=== PATIENT | female | born 1980 | race Caucasian/White ===

== ENCOUNTER 2017-01-12 09:59 | Outpatient (CLI) | payer OTHER | END 2017-01-12 10:37 | disposition home or self-care (01) | LOC: LC 09:59 | PROVIDERS: ATTEND Student in an Organized Health Care Education/Training Program | PROC: 4A1HXCZ Monitoring of Products of Conception, Cardiac Rate, External Approach (ICD-10-PCS; principal; 2017-01-12) | DX: O24.419 Gestational diabetes mellitus in pregnancy, unspecified control (principal); O09.529 Supervision of elderly multigravida, unspecified trimester | CPT/HCPCS: 59025 ==

== ENCOUNTER 2017-01-24 06:13 | Inpatient (IN) | payer OTHER ==
--- NOTE | 2017-01-24 06:24 | Non Stress Test Report ---
Non Stress Test Datetime Report Generated by CPN: 01/24/2017 06:24 DEMOGRAPHIC EGA NST: 37.4 INDICATION Indication for Study: Diabetes Mellitus; Other VITAL SIGNS Temperature - NST: 98.1 Pulse - NST: 97 RESP - NST: 16 NBPSYS NST: 115 NBPDIA NST: 74 MONITORING Monitor Explained: Monitor Explained; Test Explained; Patient Verbalized Understanding Time on Monitor: 01/12/2017 10:10 Time off Monitor: 01/12/2017 10:33 NST Duration: 23 NST INTERVENTIONS NST Interventions: PO Hydration; Reposition Patient Physician Notified NST: K VALADEZ, CNM BABY A: [id number] BABY A Movement : Present Contraction Frequency : NONE FHR Baseline : 130 Accelerations : 15X15 Decelerations : None Variability : Moderate 6-25bpm NST Review: Meets Criteria for Reactive NST NST Review and Verified By : MANAV PRAKASH RN NST Results: Reactive NST REPORT Report Trigger: Send Report
[2017-01-24] MEDS ORDERED: OXYTOCIN/NORMAL SALINE 1,000 ML IV PRN ×2 (06:27→16:19)
[2017-01-24] MEDS ORDERED: RINGERS SOLUTION,LACTATED 1,000 ML IV PRN (06:28)
[2017-01-24] MEDS ORDERED: RINGERS SOLUTION,LACTATED 300 ML IV ONE (06:28)
[2017-01-24 07:04] LABS: APPEARANCE,URINE CLOUDY; BILIRUBIN,URINE NEGATIVE (NEGATIVE); GLUCOSE, URINE NEGATIVE (NEGATIVE); KETONES,URINE NEGATIVE (NEGATIVE); LEUKOCYTE ESTERASE,URINE TRACE (NEGATIVE); NITRITE,URINE NEGATIVE (NEGATIVE); PROTEIN,URINE 30 mg/dL (NEGATIVE); URINE SPECIFIC GRAVITY 1.025; UROBILINOGEN,URINE NEGATIVE mg/dL (<2.0)
[2017-01-24 07:19] LABS: ABSOLUTE BASOPHILS # (AUTO) 0.1 10^3/uL (0.0-0.2); ABSOLUTE EOSINOPHILS # (AUTO) 0.2 10^3/uL (0.0-0.6); ABSOLUTE LYMPHOCYTES (AUTO) 2.5 10^3/uL (0.5-4.7); ABSOLUTE MONOCYTES (AUTO) 0.8 10^3/uL (0.1-1.4); ABSOLUTE NEUT (AUTO) 8.8 10^3/uL (1.7-8.2); BASOPHILS % (AUTO) 0.4 % (0-2); EOSINOPHILS % (AUTO) 1.7 % (0-6); HEMATOCRIT 29.1 % (36.0-47.0); HEMOGLOBIN 9.5 g/dL (12.0-15.5); HGB HCT DIFFERENCE -0.6; LYMPHOCYTES % (AUTO) 19.9 % (13-45); MEAN CORPUSCULAR HEMOGLOBIN 27.7 pg (27.0-33.4); MEAN CORPUSCULAR HGB CONC 32.8 g/dL (32.0-36.0); MEAN CORPUSCULAR VOLUME 85 fl (80-97); MONOCYTES % (AUTO) 6.8 % (3-13); RED BLOOD COUNT 3.44 10^6/uL (3.72-5.28); RED CELL DISTRIBUTION WIDTH 15.6 % (11.5-14.0); SEGMENTED NEUTROPHILS % (AUTO) 71.2 % (42-78); WHITE BLOOD COUNT 12.4 10^3/uL (4.0-10.5)
[2017-01-24 07:25] LABS: URINE BARBITURATES SCREEN NEGATIVE; URINE METHADONE SCREEN NEGATIVE; URINE OPIATES LOW NEGATIVE; URINE PHENCYCLIDINE SCREEN NEGATIVE
[2017-01-24] MEDS ORDERED: OXYTOCIN/NORMAL SALINE 20 UNIT/1,000 ML RTUINJ ONE (07:46)
--- NOTE | 2017-01-24 08:00 | L&D Flow Sheet ---
LD Flowsheet Datetime Report Generated by CPN: 01/24/2017 08:00 Datetime: 01/24/2017 07:56 Communication Comments: blood glucose 76 (Ekaterina Oliver, RN) Datetime: 01/24/2017 07:52 NBP Sys/[place]/Mean (mmHg): 121 (QS system process) : 72 (QS system process) : 91 (QS system process) Pulse: 81 (QS system process) LaborFlag: Antepartum (QS system process) Datetime: 01/24/2017 07:30 Uterine Activity Monitor Mode: External; Palpation (Ekaterina Oliver, RN) Frequency (min): x1 (Ekaterina Oliver, RN) Quality: Mild (Ekaterina Oliver, RN) Duration (sec): 100 (Ekaterina Oliver, RN) Duration Criteria: Less than Two 120 Second Contractions (Ekaterina Oliver, RN) Pattern: Normal: <= 5 Contractions in 10 Minutes (Ekaterina Oliver, RN) Resting Tone (Palpate): Relaxed (Ekaterina Oliver, RN) Assessment A Monitor Mode: External US (Ekaterina Oliver, RN) FHR Baseline Rate : 140 (Ekaterina Boyd, RN) FHR Baseline Changes: No Baseline Change (Ekaterina Boyd, RN) Variability: Moderate 6-25 bpm (Ekaterina Boyd, RN) Accelerations: 15X15 (Ekaterina Boyd, RN) Decelerations: None (Ekaterina Boyd, RN) Datetime: 01/24/2017 07:20 Maternal Assessment Level of Consciousness: Fully Conscious (Ekaterina Boyd, RN) DTR's/Clonus: DTRs 2+; No Clonus (Ekaterina Boyd, RN) Headache: Denies (Ekaterina Boyd, RN) Breath Sounds, Left: Clear and Equal (Ekaterina Boyd, RN) Breath Sounds, Right: Clear and Equal (Ekaterina Boyd, RN) Nausea/Vomiting: Denies (Ekaterina Boyd, RN) RUQ Epigastric Pain: Denies (Ekaterina Boyd, RN) Datetime: 01/24/2017 07:19 Communication Comments: report received from B. Payne, RN (Ekaterina Oliver, RN) Datetime: 01/24/2017 07:13 Communication Communication: RN at Bedside (Mary Grace Payne, RN) Communication Comments: Report given to M Oliver. Care relinquished at this time. (Mary Grace Payne, RN) Datetime: 01/24/2017 07:09 Procedures: Bedside Ultrasound Done (Mary Grace Payne, RN) Patient Care Comments: Head down (Mary Grace Payne, RN) Datetime: 01/24/2017 07:07 Vaginal Exam Dilatation (cm): 3.5 (Mary Grace Payne, RN) Effacement (%): 50 (Mary Grace Payne, RN) Station: -3 (Mary Grace Payne, RN) Exam by: Dr Aguilar (Mary Grace Payne, RN) Vaginal Bleeding: None (Mary Grace Payne, RN) Cervix, Consistency: Moderate (Mary Grace Payne, RN) Cervix, Position: Midposition (Mary Grace Payne, RN) Datetime: 01/24/2017 07:00 Vital Signs Stage of : Antepartum (Mary Grace Payne, RN) Frequency (min): none (Mary Grace Payne, RN) Pattern: Normal: <= 5 Contractions in 10 Minutes (Mary Grace Payne, RN) Assessment A Monitor Mode: External US (Mary Grace Payne, RN) FHR Baseline Rate : 145 (Mary Grace Payne, RN) Variability: Moderate 6-25 bpm (Mary Grace Payne, RN) Accelerations: 15X15 (Mary Grace Payne, RN) Decelerations: None (Mary Grace Payne, RN) Communication Communication: RN at Bedside; RN Reviewed Strip (Mary Grace Payne, RN) Datetime: 01/24/2017 06:58 Patient Care IV/Blood Work: IV Started; IV Bolus Started (Mary Grace Payne, RN) Patient Care Comments: 18 gauge placed in R hand (Mary Grace Payne, RN) Datetime: 01/24/2017 06:48 Procedures: Consents Signed (Mary Grace Payne, RN) Datetime: 01/24/2017 06:45 Vital Signs Stage of : Antepartum (Mary Grace Payne, RN) Uterine Activity Monitor Mode: External; Palpation (Mary Grace Payne, RN) Frequency (min): x1 (Mary Grace Payne, RN) Quality: Mild/Moderate (Mary Grace Payne, RN) Duration (sec): 120 (Mary Grace Payne, RN) Pattern: Normal: <= 5 Contractions in 10 Minutes (Mary Grace Payne, RN) Resting Tone (Palpate): Relaxed (Mary Grace Payne, RN) Assessment A Monitor Mode: External US (Mary Grace Payne, RN) FHR Baseline Rate : 145 (Mary Grace Payne, RN) Variability: Moderate 6-25 bpm (Mary Grace Payne, RN) Accelerations: 15X15 (Mary Grace Payne, RN) Decelerations: None (Mary Grace Payne, RN) Communication Communication: RN at Bedside; RN Reviewed Strip (Mary Grace Payne, RN) Datetime: 01/24/2017 06:36 NBP Sys/[place]/Mean (mmHg): 116 (QS system process) : 75 (QS system process) : 89 (QS system process) Pulse: 102 (QS system process) Datetime: 01/24/2017 06:34 Pain Pain Scale: 0 (Mary Grace Payne, RN) Pain Presence: None/Denies (Mary Grace Payne, RN) Pain Type: N/A (Mary Grace Payne, RN) Vaginal Bleeding: None (Mary Grace Payne, RN) Maternal Assessment Level of Consciousness: Fully Conscious (Mary Grace Payne, RN) DTR's/Clonus: DTRs 1+; No Clonus (Mary Grace Payne, RN) Headache: Denies (Mary Grace Payne, RN) Breath Sounds, Left: Clear and Equal (Mary Grace Payne, RN) Breath Sounds, Right: Clear and Equal (Mary Grace Payne, RN) Nausea/Vomiting: Denies (Mary Grace Payne, RN) RUQ Epigastric Pain: Denies (Mary Graceyuri Payne, RN)
--- NOTE | 2017-01-24 14:15 | L&D Progress Notes ---
PROGRESS NOTES Datetime Report Generated by CPN: 01/24/2017 14:15 PROGRESS NOTE Impression: Reassuring Heart Rate Procedures: Artificial ROM; Sterile Vag Exam Plan: Continue Present Management Plan: Continue Present Management Informed Consent Obtained: Vaginal Delivery; Induction of Labor; Risks, Benefits and Alternatives Discussed Comment: SVE done with AROM with clear fuid. Will continue Pitocin IOL. Plans epidural for jerome management. VAGINAL EXAM Dilatation: 3 Dilatation: 4 Effacement: 70 Effacement: 50 Station: -1 Station: -3 MEMBRANES Pooling: Negative Ferning Results: Negative Membranes: Ruptured Membranes: Intact Amniotic Fluid Color: Clear FETUS A Monitoring: External US : 39.2 Presentation: Oblique SIGNATURE SIGNATURE: ,[id number] SIGNATURE: [id number] Assignment: Eleanor Boyd MD Signature: with User ID: [email or web address] : with User ID: [email or web address] : I personally evaluated and examined the patient in conjunction with the MLP and agree with the assessment, treatment plan and disposition.
[2017-01-24] MEDS ORDERED: EPHEDRINE SULFATE INJ 50 MG/1 ML AMPULE ONE (14:41)
[2017-01-24] MEDS ORDERED: BUPIVACAINE HCL 0.25 % INJ/PF (2.5 MG/1 ML) 30 ML VIAL ONE (14:41)
[2017-01-24] MEDS ORDERED: FENTANYL/BUPIVACAINE/NS/PF 200 MCG/100 ML RTUINJ EPI ONE (14:41)
[2017-01-24] MEDS ORDERED: MISOPROSTOL 0.2 MG TABLET ONE (15:38)
[2017-01-24] MEDS ORDERED: LIDOCAINE 1% INJ-PF (10 MG/ML) 30 ML SDV ONE (15:38)
[2017-01-24] MEDS ORDERED: ACETAMINOPHEN WITH CODEINE #3 TABLET PO PRN (16:19)
[2017-01-24] MEDS ORDERED: DIBUCAINE 1% OINTMENT 28 GM TP PRN (16:19)
[2017-01-24] MEDS ORDERED: MEASLES,MUMPS&RUBELLA VACC/PF 0.5 ML VIAL SUBCUT PRN (16:19)
[2017-01-24] MEDS ORDERED: DIPH/PERTUSS(ACELL)/TETANUS VAC/PF 0.5 ML SYR (>=10YO) IM PRN (16:19)
[2017-01-24] MEDS ORDERED: ZOLPIDEM TARTRATE 5 MG TABLET PO PRN (16:19)
[2017-01-24] MEDS ORDERED: BENZOCAINE/MENTHOL AEROSOL SPRAY 56 ML TOP PRN (16:19)
--- NOTE | 2017-01-24 17:28 | Delivery Summary ---
Del Sum A-C Datetime Report Generated by CPN: 01/24/2017 17:28 ADMISSION DATA Chief Complaint: Scheduled Induction of Labor Indication for Induction: Maternal Diabetes Admission Impression: Term, Intrauterine ; Intact Membranes; Induction of Labor Admit Provider Comments: 36yo at 39+2ega with A2GDM , AMA, left renal pelviectasis. high weight gain (68#). Currently on Glyburide 2.5mg QAM and 3.75mg QHS. She is here for IOL. EFW 8#, pelvis proven to 8#. Pelvis adequate for TRINITY and anticipate . GBS negative. Will initiate pitocin and then perform AROM when approp. DELIVERY PERSONNEL Delivery Doctor:: Eleanor Boyd MD Labor and Delivery Nurse:: Ekaterina Boyd RN Nursery Nurse:: Vesta Lao RN Student Observers:: Rachel Jimenez, Cindy Keating, Paz Phanton Post Doc Fellowship/INVESTOR RELATIONS SPECIALIST: Oralia Cartwright, INVESTOR RELATIONS SPECIALIST II MATERNAL INFORMATION Delivery Anesthesia: Epidural Medications After Delivery: Pitocin Bolus-Please Comment Meds After Delivery Comment: 20 units Pitocin in 1L NS Estimated Blood Loss (ml): 200 Maternal Complications: None LABOR SUMMARY EDC: 01/29/2017 00:00 No. Babies in Womb: 1 Attempted: No Labor Anesthesia: Epidural LABOR INFORMATION Reason for Induction: Maternal Diabetes Onset of Labor: 01/24/2017 14:50 Complete Dilatation: 01/24/2017 15:53 Oxytocin: Induction Group B Beta Strep: negative Antibiotics # of Doses: 0 Name of Antibiotic Given: n/a Steroids Given: None Reason Steroids Not Administered: Not Applicable MEMBRANES Membranes Rupture Method: Artificial Rupture of Membranes: 01/24/2017 14:07 Length of Rupture (hr): 1.77 Amniotic Fluid Color: Clear Amniotic Fluid Amount: Small Amniotic Fluid Odor: Normal STAGES OF LABOR Stage 1 hr: 1 Stage 1 min: 3 Stage 2 hr: 0 Stage 2 min: 0 Stage 3 hr: 0 Stage 3 min: 5 Total Time in Labor hr: 1 Total Time in Labor min: 8 VAGINAL DELIVERY Episiotomy: None Laceration Extension: First Degree Laceration Type: Vaginal Laceration Repair: Yes Laceration Repair Note: 2-0 Chromic repair Sponge Count Correct: Yes; Vaginal Sweep Performed Sharps Count Correct: Yes CSECTION DELIVERY Primary Indication: N/A Secondary Indication: N/A CSection Incidence: N/A Labor: N/A Elective: N/A CSection Incision: N/A BABY A INFORMATION Infant Delivery Date/Time: 01/24/2017 15:53 Method of Delivery: Vaginal Born in Route : No : N/A Forceps: N/A Vacuum Extraction: N/A Shoulder Dystocia : No PRESENTATION/POSITION BABY A Presentation: Cephalic Cephalic Presentation: Vertex Vertex Position: Right Occipital Anterior Breech Presentation: N/A PLACENTA INFORMATION BABY A Placenta Delivery Time : 01/24/2017 15:58 Placenta Method of Delivery: Spontaneous Placenta Status: Delivered SCORES BABY A Heart Rate 1 min: >100 bpm Resp Effort 1 min: Good Cry Reflex Irritability 1 min: Cough or Sneeze or Pulls Away Muscle Tone 1 min: Active Motion Color 1 min: Body Friedens, Extremities Blue Resuscitation Effort 1 min: Tactile Stimulation SCORE 1 MIN: 9 Heart Rate 5 min: >100 bpm Resp Effort 5 min: Good Cry Reflex Irritability 5 min: Cough or Sneeze or Pulls Away Muscle Tone 5 min: Active Motion Color 5 min: Body Friedens, Extremities Blue Resuscitation Effort 5 min: Tactile Stimulation SCORE 5 MIN: 9 INFORMATION BABY A Gestational Age at Delivery: 39.2 Gestational Status: Full Term- 39- 40.6 Weeks Outcome : Liveborn Infant Condition : Stable Sex: Male IDENTIFICATION BABY A Verification Date/Time: 01/24/2017 16:22 ID Band Number: [id number] Mother's Name Verified: Yes Infant RN Verifying : Stefanie Giovani RNC Additional Verifying Personnel: Oliver Bonner RNC WEIGHT/LENGTH BABY A Infant Birthweight (gm): 3920 Weight (lb): 8 Infant Weight (oz): 10 Length (in): 20.00 Length (cm): 50.80 CORD INFORMATION BABY A No. Cord Vessels: 3 Nuchal Cord : N/A Cord Blood Taken: Yes-For Eval (Mom's Blood Type - or O+) Infant Suction: Mouth; Nose ASSESSMENT BABY A Infant Complications: Multiple Late Decels Physical Findings at Delivery: Within Normal Limits Infant Respirations: Appears Normal Skin to Skin: Yes Skin to Skin Time (min): 30 Neckties Painter/ALS Called : No Infant Care By: Jesus Lao RN Transferred To: Remains with Mother BABY B INFORMATION : N/A SIGNATURES Signature: with User ID: [email or web address] : I personally evaluated and examined the patient in conjunction with the MLP and agree with the assessment, treatment plan and disposition.
--- NOTE | 2017-01-24 18:05 | Admission Physical ---
Datetime Report Generated by CPN: 01/24/2017 18:05 CURRENT ADMISSION Chief Complaint: Scheduled Induction of Labor Indication for Induction: Maternal Diabetes Admit Plan: Admit to Unit; Initiate Labor Induction Protocol ALLERGIES Medication Allergies: No Medication Allergies: No Known Allergies (01/24/2017) Medication Allergies: No Known Allergies (01/12/2017) Latex: No Latex Allergies Food Allergies: none Environmental Allergies: none OBSTETRICAL HISTORY EDC: 01/29/2017 00:00 : 3 Para: 1 Term: 1 : 0 SAB: 0 IAB: 1 Ectopic: 0 Livin Cesareans: 0 VBACs: 0 Multiple Births: 0 Gestational Diabetes: Yes Rh Sensitization: No Incompetent Cervix: No JESSICA: No Infertility: No ART Treatment: No Uterine Anomaly: No IUGR: No Hx Previous C/S: No Macrosomia: No Hx Loss/Stillborn: No PIH: No Hx : No Placenta Previa/Abruption: No Depression/PP Depression: No PTL/PROM: No Post Hemorrhage: No Current Procedures: Ultrasound; NST Obstetrical History Comments: G-1 EAB 11 week G-2 40 weeks no complications G-3 GDM, AMA on Glyburide SEE RECORDS Alcohol: No Marijuana : No Cocaine: No Other Illicit Drugs: No Cigarettes: Former Smoker. [id number] MEDICAL HISTORY Diabetes: Yes Diabetes Type: Gestational Diabetes Blood Transfusion: No Pulmonary Disease (Asthma, TB): No Breast Disease: No Hypertension: No Biology Adjunct Instructor Surgery: No Heart Disease: No Hosp/Surgery: Yes Autoimmune Disorder: No Anesthetic Complications: No Kidney Disease: No Abnormal Pap Smear: No Neuro/Epilepsy: No Psychiatric Disorders: No Other Medical Diseases: No Hepatitis/Liver Disease: No Significant Family History: No Varicosities/Phlebitis: No Trauma/Violence : No Thyroid Dysfunction: No Medical History Comments: childbirth INFECTIOUS HISTORY Gonorrhea: No Genital Herpes: No Chlamydia: No Tuberculosis: No Syphilis: No Hepatitis: No HIV/AIDS Exposure: No Rash or Viral Illness: No HPV: No PHYSICAL EXAM General: Normal HEENT: Normal Neurologic: Normal Thyroid: Normal Heart: Normal Lungs: Normal Breast: Deferred Back: Normal Abdomen: Normal Genitourinary Exam: Normal Extremities: Normal DTRs: Normal Pelvic Type: Adequate Vital Signs: Reviewed; Within Normal Limits VAGINAL EXAM Dilatation: 3 Dilatation: 4 Effacement: 70 Effacement: 50 Station: -1 Station: -3 MEMBRANES Pooling: Negative Ferning Results: Negative Membranes: Ruptured Membranes: Intact Amniotic Fluid Color: Clear FETUS A EGA: 39.2 Monitoring: External US FHR- Baseline: 150 Variability: Moderate 6-25bpm Accelerations: 15X15 Decelerations: None FHR Category: Category I Presentation: Oblique Admit Comment: 36yo at 39+2ega with A2GDM , AMA, left renal pelviectasis. high weight gain (68#). Currently on Glyburide 2.5mg QAM and 3.75mg QHS. She is here for IOL. EFW 8#, pelvis proven to 8#. Pelvis adequate for TRINITY and anticipate . GBS negative. Will initiate pitocin and then perform AROM when approp. PLANS FOR LABOR AND DELIVERY Labor and Delivery: None Pain Management: Epidural Feeding Preference: Breast Benefit of Breast Feed Discussed: Yes Circumcision: Yes INFORMED CONSENT Informed Consent Obtained: Vaginal Delivery; Induction of Labor; Risks, Benefits and Alternatives Discussed Signature: with User ID: [email or web address] : I personally evaluated and examined the patient in conjunction with the MLP and agree with the assessment, treatment plan and disposition.
[2017-01-24] MEDS: FERROUS SULFATE 325 MG TABLET PO SCH (19:00)
[2017-01-24] MEDS: DOCUSATE SODIUM 100 MG CAPSULE PO SCH (19:00)
--- NOTE | 2017-01-24 19:00 | L&D Flow Sheet ---
LD Flowsheet Datetime Report Generated by CPN: 01/24/2017 19:00 Datetime: 01/24/2017 17:40 NBP Sys/[place]up[place]/Mean (mmHg): 119 (QS system process) : 73 (QS system process) : 91 (QS system process) Pulse: 91 (QS system process) Datetime: 01/24/2017 17:25 NBP Sys/[place]/Mean (mmHg): 115 (QS system process) : 66 (QS system process) : 85 (QS system process) Pulse: 86 (QS system process) Datetime: 01/24/2017 17:10 NBP Sys/[place]/Mean (mmHg): 128 (QS system process) : 74 (QS system process) : 94 (QS system process) Pulse: 99 (QS system process) Datetime: 01/24/2017 17:06 NBP Sys/[place]/Mean (mmHg): 126 (QS system process) : 73 (QS system process) : 93 (QS system process) Pulse: 90 (QS system process) Datetime: 01/24/2017 16:45 Stage of : Recovery (Ekaterina Boyd RN) Respirations: 16 (Ekaterina Boyd RN) Temperature (F): 98.1 (Ekaterina Boyd RN) Temperature (C): 36.7 (QS system process) Temperature Route: Oral (Ekaterina Boyd RN) Pain Scale: 0 (Ekaterina Boyd RN) Pain Presence: None/Denies (Ekaterina Boyd RN) Pain Type: N/A (Ekaterina Boyd RN) Pain Goal: 1 (Ekaterina Boyd RN) Pain Relief Measures: Comfort Measures (Ekaterina Boyd RN) Datetime: 01/24/2017 16:40 NBP Sys/[place]/Mean (mmHg): 118 (QS system process) : 79 (QS system process) : 91 (QS system process) Datetime: 01/24/2017 16:35 NBP Sys/[place]/Mean (mmHg): 120 (QS system process) : 76 (QS system process) : 93 (QS system process) Pulse: 92 (QS system process) Datetime: 01/24/2017 15:55 Stage of : Recovery (Ekaterina Oliver, RN) Datetime: 01/24/2017 15:53 Stage of : Recovery (Ekaterina Oliver, RN) Datetime: 01/24/2017 15:51 NBP Sys/[place]/Mean (mmHg): 193 (QS system process) : 95 (QS system process) : 136 (QS system process) Pulse: 148 (QS system process) LaborFlag: Antepartum (QS system process) Datetime: 01/24/2017 15:50 NBP Sys/[place]/Mean (mmHg): 187 (QS system process) : 68 (QS system process) : 98 (QS system process) Pulse: 153 (QS system process) LaborFlag: Antepartum (QS system process) Datetime: 01/24/2017 15:49 Monitor Interventions for FHR: Ultrasound Adjusted (Ekaterina Oliver, RN) Datetime: 01/24/2017 15:48 NBP Sys/[place]/Mean (mmHg): 179 (QS system process) : 72 (QS system process) : 103 (QS system process) Pulse: 139 (QS system process) LaborFlag: Antepartum (QS system process) Datetime: 01/24/2017 15:47 NBP Sys/[place]/Mean (mmHg): 156 (QS system process) : 68 (QS system process) : 98 (QS system process) Pulse: 112 (QS system process) LaborFlag: Antepartum (QS system process) Datetime: 01/24/2017 15:46 NBP Sys/[place]/Mean (mmHg): 146 (QS system process) : 94 (QS system process) : 112 (QS system process) Pulse: 130 (QS system process) Pushing: Coached on Pushing; Urge to Push; Involuntary Pushing (Ekaterina Boyd RN) Pushing Position: Pushing with Contractions; Pushing Lithotomy (Ekaterina Boyd RN) Pushing Progress: Descent with Pushing; Perineal Bulging; Presenting Part Visible; with Pushing; Pushing Effectively with Contractions (Ekaterina Boyd RN) LaborFlag: Antepartum (QS system process) Datetime: 01/24/2017 15:45 NBP Sys/[place]/Mean (mmHg): 124 (QS system process) : 77 (QS system process) : 96 (QS system process) Pulse: 134 (QS system process) Monitor Mode: External; Palpation (Ekaterina Boyd RN) Frequency (min): 2-4 (Ekaterina Boyd RN) Quality: Mild/Moderate (Ekaterina Boyd RN) Duration (sec): 60-90 (Ekaterina Boyd RN) Duration Criteria: Less than Two 120 Second Contractions (Ekaterina Boyd RN) Pattern: Normal: <= 5 Contractions in 10 Minutes (Ekaterina Boyd RN) Resting Tone (Palpate): Relaxed (Ekaterina Boyd RN) Monitor Mode: External US (Ekaterina Boyd RN) Monitor Interventions for FHR: Ultrasound Adjusted (Ekaternia Boyd RN) FHR Baseline Rate : 130 (Ekaterina Boyd RN) FHR Baseline Changes: No Baseline Change (Ekaterina Boyd RN) Variability: Moderate 6-25 bpm (Ekaterina Boyd RN) Accelerations: None (Ekaterina Boyd RN) Decelerations: None (Ekaterina Boyd RN) LaborFlag: Antepartum (QS system process) Datetime: 01/24/2017 15:43 NBP Sys/[place]/Mean (mmHg): 144 (QS system process) : 82 (QS system process) : 104 (QS system process) Pulse: 111 (QS system process) LaborFlag: Antepartum (QS system process) Datetime: 01/24/2017 15:42 NBP Sys/[place]/Mean (mmHg): 137 (QS system process) : 87 (QS system process) : 105 (QS system process) Pulse: 139 (QS system process) LaborFlag: Antepartum (QS system process) Datetime: 01/24/2017 15:41 NBP Sys/[place]/Mean (mmHg): 154 (QS system process) : 79 (QS system process) : 97 (QS system process) Pulse: 112 (QS system process) LaborFlag: Antepartum (QS system process) Datetime: 01/24/2017 15:40 Patient Position/Activity: Right Tilt; Low Fowlers (Ekaterina Boyd RN) Datetime: 01/24/2017 15:38 NBP Sys/[place]/Mean (mmHg): 131 (QS system process) : 60 (QS system process) : 86 (QS system process) Pulse: 90 (QS system process) LaborFlag: Antepartum (QS system process) Datetime: 01/24/2017 15:37 NBP Sys/[place]/Mean (mmHg): 153 (QS system process) : 70 (QS system process) : 100 (QS system process) Pulse: 104 (QS system process) Pushing: Coached on Pushing; Urge to Push; Involuntary Pushing (Ekaterina Boyd RN) Pushing Position: Pushing with Contractions; Pushing Lithotomy (Ekaterina Boyd RN) Pushing Progress: Descent with Pushing; Presenting Part Visible (Ekaterina Boyd RN) LaborFlag: Antepartum (QS system process) Datetime: 01/24/2017 15:36 NBP Sys/[place]/Mean (mmHg): 135 (QS system process) : 63 (QS system process) : 90 (QS system process) Pulse: 100 (QS system process) LaborFlag: Antepartum (QS system process) Datetime: 01/24/2017 15:35 NBP Sys/[place]/Mean (mmHg): 122 (QS system process) : 65 (QS system process) : 89 (QS system process) Pulse: 109 (QS system process) Communication Comments: straight cath per sterile technique (Ekaterina Boyd RN) LaborFlag: Antepartum (QS system process) Datetime: 01/24/2017 15:34 NBP Sys/[place]/Mean (mmHg): 127 (QS system process) : 69 (QS system process) : 86 (QS system process) Pulse: 93 (QS system process) LaborFlag: Antepartum (QS system process) Datetime: 01/24/2017 15:33 NBP Sys/[place]/Mean (mmHg): 129 (QS system process) : 92 (QS system process) : 105 (QS system process) Pulse: 86 (QS system process) Dilatation (cm): 10.0 (Ekaterina Boyd RN) Effacement (%): 100 (Ekaterian Boyd RN) Station: 2 (Ekaterina Boyd RN) Exam by: Helga Boyd RN (Ekaterina Boyd RN) LaborFlag: Antepartum (QS system process) Datetime: 01/24/2017 15:32 Communication: Provider at Bedside (Ekaterina Boyd RN) Datetime: 01/24/2017 15:31 NBP Sys/[place]/Mean (mmHg): 123 (QS system process) : 70 (QS system process) : 89 (QS system process) Pulse: 83 (QS system process) LaborFlag: Antepartum (QS system process) Datetime: 01/24/2017 15:30 NBP Sys/[place]/Mean (mmHg): 121 (QS system process) : 79 (QS system process) : 96 (QS system process) Pulse: 97 (QS system process) Monitor Mode: External; Palpation (Ekaterina Boyd RN) Frequency (min): 1-2.5 (Ekaterina Boyd RN) Quality: Moderate to Strong (Ekaterina Boyd RN) Duration (sec): 60-70 (Ekaterina Boyd RN) Duration Criteria: Less than Two 120 Second Contractions (Ekaterina Boyd RN) Pattern: Normal: <= 5 Contractions in 10 Minutes (Ekaterina Boyd RN) Resting Tone (Palpate): Relaxed (Ekaterina Boyd RN) Monitor Mode: External US (Ekaterina Boyd RN) FHR Baseline Rate : 130 (Ekaterina Boyd RN) FHR Baseline Changes: No Baseline Change (Ekaterina Boyd RN) Variability: Moderate 6-25 bpm (Ekaterina Boyd RN) Accelerations: 15X15 (Ekaterina Boyd RN) Decelerations: Late (Ekaterina Boyd RN) LaborFlag: Antepartum (QS system process) Datetime: 01/24/2017 15:29 NBP Sys/[place]/Mean (mmHg): 108 (QS system process) : 58 (QS system process) : 79 (QS system process) Pulse: 81 (QS system process) Medication Comments: Ephedrine 10 mg (Ekaterina Boyd RN) LaborFlag: Antepartum (QS system process) Datetime: 01/24/2017 15:28 NBP Sys/[place]/Mean (mmHg): 115 (QS system process) : 61 (QS system process) : 84 (QS system process) Pulse: 82 (QS system process) LaborFlag: Antepartum (QS system process) Datetime: 01/24/2017 15:27 NBP Sys/[place]/Mean (mmHg): 115 (QS system process) : 67 (QS system process) : 86 (QS system process) Pulse: 76 (QS system process) LaborFlag: Antepartum (QS system process) Datetime: 01/24/2017 15:24 Patient Position/Activity: Right Extreme; Low Fowlers (Ekaterina Oliver, RN) Communication Comments: o2 applied (Ekaterina Oliver, RN) Datetime: 01/24/2017 15:20 Patient Position/Activity: Right Tilt; Low Fowlers (Ekaterina Boyd, RN) Datetime: 01/24/2017 15:19 NBP Sys/[place]/Mean (mmHg): 137 (QS system process) : 63 (QS system process) : 91 (QS system process) Pulse: 75 (QS system process) LaborFlag: Antepartum (QS system process) Datetime: 01/24/2017 15:18 NBP Sys/[place]/Mean (mmHg): 143 (QS system process) : 67 (QS system process) : 96 (QS system process) Pulse: 93 (QS system process) LaborFlag: Antepartum (QS system process) Datetime: 01/24/2017 15:17 NBP Sys/[place]/Mean (mmHg): 147 (QS system process) : 76 (QS system process) : 105 (QS system process) Pulse: 96 (QS system process) Pulse: 97 (QS system process) SpO2 (%): 99 (QS system process) LaborFlag: Antepartum (QS system process) Datetime: 01/24/2017 15:16 Anesthesia Plans: Epidural (Ekaterina Boyd RN) Epidural Positioning: Sitting (Ekaterina Boyd RN) Epidural Procedure: Cath Placed; Test Dose (Ekaterina Boyd RN) Datetime: 01/24/2017 15:15 Monitor Mode: External; Palpation (Ekaterina Boyd RN) Frequency (min): 2.5-3 (Ekaterina Boyd RN) Quality: Moderate to Strong (Ekaterina Boyd RN) Duration (sec): 70-80 (Ekaterina Boyd RN) Duration Criteria: Less than Two 120 Second Contractions (Ekaterina Boyd RN) Pattern: Normal: <= 5 Contractions in 10 Minutes (Ekaterina Boyd RN) Resting Tone (Palpate): Relaxed (Ekaterina Boyd RN) Monitor Mode: External US (Ekaterina Boyd RN) FHR Baseline Rate : 130 (Ekaterina Boyd RN) FHR Baseline Changes: No Baseline Change (Ekaterina Boyd RN) Variability: Moderate 6-25 bpm (Ekaterina Boyd RN) Accelerations: 10X10 (Ekaterina Boyd RN) Decelerations: None (Ekaterina Boyd RN) Anesthesia Plans: Epidural (Ekaterina Boyd RN) Epidural Positioning: Sitting (Ekaterina Boyd RN) Epidural Procedure: Cath Placed (Ekaterina Boyd RN) Datetime: 01/24/2017 15:12 Pulse: 84 (QS system process) SpO2 (%): 97 (QS system process) LaborFlag: Antepartum (QS system process) Datetime: 01/24/2017 15:11 NBP Sys/[place]/Mean (mmHg): 141 (QS system process) : 83 (QS system process) : 106 (QS system process) Pulse: 87 (QS system process) LaborFlag: Antepartum (QS system process) Datetime: 01/24/2017 15:09 Procedure Verify: Correct Patient Identity; Correct Side and Site are Marked; Accurate Procedure Consent Form; Agreement on Procedure to be Done; Correct Patient Position; Relevant Images and Results are Properly Labeled and Displayed; Addressed Need to Administer Antibiotics or Fluids for Irrigation; Safety Precautions Based on Patient History or Medication Use (Ekaterina Boyd RN) Anesthesia Plans: Epidural (Ekaterina Boyd RN) Epidural Positioning: Sitting (Ekaterina Boyd RN) Datetime: 01/24/2017 15:07 Pulse: 84 (QS system process) SpO2 (%): 97 (QS system process) LaborFlag: Antepartum (QS system process) Datetime: 01/24/2017 15:00 Monitor Mode: External; Palpation (Ekaterina Boyd, RN) Frequency (min): 2-2.5 (Ekaterina Boyd, RN) Quality: Mild/Moderate (Ekaterina Oliver, RN) Duration (sec): 70-90 (Ekaterina Boyd, RN) Duration Criteria: Less than Two 120 Second Contractions (Ekaterina Boyd, RN) Pattern: Normal: <= 5 Contractions in 10 Minutes (Ekaterina Boyd, RN) Resting Tone (Palpate): Relaxed (Ekaterina Body, RN) Monitor Mode: External US (Ekaterina Boyd, RN) FHR Baseline Rate : 135 (Ekaterina Boyd, RN) FHR Baseline Changes: No Baseline Change (Ekaterina Boyd, RN) Variability: Moderate 6-25 bpm (Ekaterina Oliver, RN) Accelerations: None (Ekaterinakelvin Boyd, RN) Decelerations: Early (Ekaterina Boyd, RN) Datetime: 01/24/2017 14:58 Pulse: 90 (QS system process) SpO2 (%): 97 (QS system process) LaborFlag: Antepartum (QS system process) Datetime: 01/24/2017 14:57 NBP Sys/[place]/Mean (mmHg): 142 (QS system process) : 86 (QS system process) : 108 (QS system process) Pulse: 88 (QS system process) LaborFlag: Antepartum (QS system process) Datetime: 01/24/2017 14:52 Pulse: 77 (QS system process) SpO2 (%): 96 (QS system process) LaborFlag: Antepartum (QS system process) Datetime: 01/24/2017 14:50 Procedure Verify: Correct Patient Identity; Correct Side and Site are Marked; Accurate Procedure Consent Form; Agreement on Procedure to be Done; Correct Patient Position; Relevant Images and Results are Properly Labeled and Displayed; Addressed Need to Administer Antibiotics or Fluids for Irrigation; Safety Precautions Based on Patient History or Medication Use (Ekaterina Boyd RN) Anesthesia Plans: Epidural (Ekaterina Boyd RN) Datetime: 01/24/2017 14:49 Communication Comments: Dr. Hinson notified of patient's request for epidural (Ekaterina Boyd, ESTELA) Datetime: 01/24/2017 14:45 Monitor Mode: External; Palpation (Ekaterina Boyd, RN) Frequency (min): 2-3.5 (Ekaterina Boyd, RN) Quality: Mild/Moderate (Ekaterina Boyd, RN) Duration (sec): 60-80 (Ekaterina Boyd, RN) Duration Criteria: Less than Two 120 Second Contractions (Ekaterina Boyd, RN) Pattern: Normal: <= 5 Contractions in 10 Minutes (Ekaterina Boyd, RN) Resting Tone (Palpate): Relaxed (Ekaterina Boyd, RN) Monitor Mode: External US (Ekaterina Boyd, RN) FHR Baseline Rate : 130 (Ekaterina Boyd, RN) FHR Baseline Changes: No Baseline Change (Ekaterina Boyd, RN) Variability: Moderate 6-25 bpm (Ekaterina Boyd, RN) Accelerations: 15X15 (Ekaterina Boyd, RN) Decelerations: None (Ekaterina Boyd, RN) Datetime: 01/24/2017 14:30 Monitor Mode: External; Palpation (Ekaterina Boyd RN) Frequency (min): 1.5-3 (Ekaterina Boyd RN) Quality: Mild/Moderate (Ekaterina Boyd, RN) Duration (sec): 50-100 (Ekaterina Boyd, ESTELA) Duration Criteria: Less than Two 120 Second Contractions (Ekaterina Boyd, ESTELA) Pattern: Normal: <= 5 Contractions in 10 Minutes (Ekaterina Boyd RN) Resting Tone (Palpate): Relaxed (Ekaterina Boyd, RN) Monitor Mode: External US (Ekaterina Boyd, ESTELA) FHR Baseline Rate : 140 (Ekaterina Boyd RN) FHR Baseline Changes: No Baseline Change (Ekaterina Boyd, RN) Variability: Moderate 6-25 bpm (Ekaterina Boyd, RN) Accelerations: 10X10 (Ekaterina Boyd, RN) Decelerations: None (Ekaterina Boyd, RN) Datetime: 01/24/2017 14:28 NBP Sys/[place]/Mean (mmHg): 118 (QS system process) : 59 (QS system process) : 83 (QS system process) Pulse: 82 (QS system process) LaborFlag: Antepartum (QS system process) Datetime: 01/24/2017 14:15 Monitor Mode: External; Palpation (Ekaterina Boyd, ESTELA) Frequency (min): 2.5-4 (Ekaterina Boyd, ESTELA) Quality: Mild/Moderate (Ekaterina Boyd, RN) Duration (sec): 80-90 (Ekaterina Boyd, RN) Duration Criteria: Less than Two 120 Second Contractions (Ekaterina Boyd, RN) Pattern: Normal: <= 5 Contractions in 10 Minutes (Ekaterina Boyd, RN) Resting Tone (Palpate): Relaxed (Ekaterina Boyd, RN) Monitor Mode: External US (Ekaterina Boyd, RN) FHR Baseline Rate : 135 (Ekaterina Boyd, RN) FHR Baseline Changes: No Baseline Change (Ektaerina Boyd, RN) Variability: Moderate 6-25 bpm (Ekaterina Boyd, RN) Accelerations: None (Ekaterina Boyd, RN) Decelerations: None (Ekaterina Boyd, RN) Datetime: 01/24/2017 14:09 Procedure Verify: Correct Patient Identity; Correct Side and Site are Marked; Accurate Procedure Consent Form; Agreement on Procedure to be Done; Relevant Images and Results are Properly Labeled and Displayed; Addressed Need to Administer Antibiotics or Fluids for Irrigation; Safety Precautions Based on Patient History or Medication Use (Ekaterina Boyd RN) Anesthesia Plans: Epidural (Ekaterina Boyd RN) Datetime: 01/24/2017 14:07 Dilatation (cm): 3.0 (Ekaterina Boyd RN) Effacement (%): 70 (Ekaterina Boyd RN) Station: -1 (Ekaterina Boyd RN) Exam by: Brenda Rhoades CNM (Ekaterina Boyd RN) Membrane Status: Ruptured (Ekaterina Boyd RN) Membranes Rupture Method: Artificial (Ekaterina Boyd RN) Amniotic Fluid Color: Clear (Ekaterina Boyd RN) Amniotic Fluid Amount: Small (Ekaterina Boyd RN) Amniotic Fluid Odor: Normal (Ekaterina Boyd RN) Datetime: 01/24/2017 14:06 Pain Scale: 3 (Ekaterina Boyd RN) Pain Presence: Intermittent (Ekaterina Boyd RN) Pain Type: Contraction (Ekaterina Boyd RN) Pain Location: Abdomen (Ekaterina Boyd RN) Pain Goal: 1 (Ekaterina Boyd RN) LaborFlag: Antepartum (QS system process) Datetime: 01/24/2017 14:00 Monitor Mode: External; Palpation (Ekaterina Boyd RN) Frequency (min): 2-2.5 (Ekaterina Boyd RN) Quality: Mild/Moderate (Ekaterina Boyd, ESTELA) Duration (sec): 70-90 (Ekaterina Boyd, ESTELA) Duration Criteria: Less than Two 120 Second Contractions (Ekaterina Boyd, ESTELA) Pattern: Normal: <= 5 Contractions in 10 Minutes (Ekaterina Boyd RN) Resting Tone (Palpate): Relaxed (Ekaterina Boyd, ESTELA) Monitor Mode: External US (Ekaterina Boyd, ESTELA) FHR Baseline Rate : 140 (Ekaterina Boyd RN) FHR Baseline Changes: No Baseline Change (Ekaterina Boyd, RN) Variability: Moderate 6-25 bpm (Ekaterina Boyd, RN) Accelerations: 15X15 (Ekaterina Boyd, RN) Decelerations: None (Ekaterina Boyd, RN) Datetime: 01/24/2017 13:57 NBP Sys/[place]/Mean (mmHg): 133 (QS system process) : 63 (QS system process) : 88 (QS system process) Pulse: 85 (QS system process) LaborFlag: Antepartum (QS system process) Datetime: 01/24/2017 13:45 Monitor Mode: External; Palpation (Ekaterina Boyd RN) Frequency (min): 1.5-3 (Ekaterina Boyd RN) Quality: Mild/Moderate (Ekaterina Boyd, RN) Duration (sec): 60-90 (Ekaterina Boyd, ESTELA) Duration Criteria: Less than Two 120 Second Contractions (Ekaterina Boyd, ESTELA) Pattern: Normal: <= 5 Contractions in 10 Minutes (Ekaterina Boyd RN) Resting Tone (Palpate): Relaxed (Ekaterina Boyd, RN) Monitor Mode: External US (Ekaterina Boyd, RN) FHR Baseline Rate : 140 (Ekaterina Boyd, RN) FHR Baseline Changes: No Baseline Change (Ekaterina Boyd, ESTELA) Variability: Moderate 6-25 bpm (Ekaterina Boyd, RN) Accelerations: 15X15 (Ekaterina Boyd, RN) Decelerations: None (Ekaterina Boyd, RN) Pitocin (milliunit): Pitocin Remains (milliunits) @ (Annotations: 8) (Ekaterina Boyd RN) Datetime: 01/24/2017 13:44 I/O Interventions: Popsicle (Ekaterina Oliver, RN) Datetime: 01/24/2017 13:43 NBP Sys/[place]/Mean (mmHg): 105 (QS system process) : 51 (QS system process) : 72 (QS system process) Pulse: 80 (QS system process) LaborFlag: Antepartum (QS system process) Datetime: 01/24/2017 13:40 Communication Comments: blood sugar 71, order received for patient to have popsicle from PWong Rhoades, CNM (Ekaterina Oliver, RN) Datetime: 01/24/2017 13:39 Bedside Blood Glucose: 71 (QS system process) LaborFlag: Antepartum (QS system process) Datetime: 01/24/2017 13:30 Monitor Mode: External; Palpation (Ekaterina Boyd, RN) Frequency (min): 2-2.5 (Ekaterina Boyd, RN) Quality: Mild (Ekaterina Boyd, RN) Duration (sec): 70-90 (Ekaterina Boyd, RN) Duration Criteria: Less than Two 120 Second Contractions (Ekaterina Boyd, RN) Pattern: Normal: <= 5 Contractions in 10 Minutes (Ekaterina Boyd, RN) Resting Tone (Palpate): Relaxed (Ekaterina Boyd, RN) Monitor Mode: External US (Ekaterina Boyd, RN) FHR Baseline Rate : 140 (Ekaterina Boyd, RN) FHR Baseline Changes: No Baseline Change (Ekaterina Boyd, RN) Variability: Moderate 6-25 bpm (Ekaterina Boyd, RN) Accelerations: None (Ekaterina Boyd, RN) Decelerations: Variable (Ekaterina Boyd, RN) Datetime: 01/24/2017 13:27 NBP Sys/[place]/Mean (mmHg): 110 (QS system process) : 57 (QS system process) : 76 (QS system process) Pulse: 78 (QS system process) LaborFlag: Antepartum (QS system process) Datetime: 01/24/2017 13:22 Patient Position/Activity: Right Tilt; Low Fowlers (Ekaterina Oliver, RN) Datetime: 01/24/2017 13:20 Patient Position/Activity: Left Extreme; Low Fowlers (Ekaterina Oliver, RN) Datetime: 01/24/2017 13:15 Monitor Mode: External; Palpation (Ekaterina Boyd, RN) Frequency (min): 1.5-2.5 (Ekaterina Boyd, RN) Quality: Mild/Moderate (Ekaterina Boyd, RN) Duration (sec): 70-90 (Ekaterina Boyd, RN) Duration Criteria: Less than Two 120 Second Contractions (Ekaterina Boyd, RN) Pattern: Normal: <= 5 Contractions in 10 Minutes (Ekaterina Boyd, RN) Resting Tone (Palpate): Relaxed (Ekaterina Boyd, RN) Monitor Mode: External US (Ekaterina Boyd, RN) FHR Baseline Rate : 130 (Ekaterina Boyd, RN) FHR Baseline Changes: No Baseline Change (Ekaterina Boyd, RN) Variability: Moderate 6-25 bpm (Ekaterina Boyd, RN) Accelerations: 15X15 (Ektaerina Boyd, RN) Decelerations: None (Ekaterina Boyd, RN) Pitocin (milliunit): Pitocin Remains (milliunits) @ (Annotations: 6) (Ekaterina Boyd, RN) Datetime: 01/24/2017 13:12 I/O Interventions: Up to BR (Ekaterina Boyd, RN) Datetime: 01/24/2017 13:11 NBP Sys/[place]/Mean (mmHg): 99 (QS system process) : 56 (QS system process) : 74 (QS system process) Pulse: 80 (QS system process) LaborFlag: Antepartum (QS system process) Datetime: 01/24/2017 13:00 Monitor Mode: External; Palpation (Ekaterina Boyd RN) Frequency (min): 2.5-3.5 (Ekaterina Boyd RN) Quality: Mild/Moderate (Ekaterina Boyd RN) Duration (sec): 60-120 (Ekaterina Boyd RN) Duration Criteria: Less than Two 120 Second Contractions (Ekaterina Boyd RN) Pattern: Normal: <= 5 Contractions in 10 Minutes (Ekaterina Boyd RN) Resting Tone (Palpate): Relaxed (Ekaterina Boyd RN) Monitor Mode: External US (Ekaterina Boyd RN) FHR Baseline Rate : 130 (Ekaterina Boyd RN) FHR Baseline Changes: No Baseline Change (Ekaterina Boyd RN) Variability: Moderate 6-25 bpm (Ekaterina Boyd RN) Accelerations: 15X15 (Ekaterina Boyd RN) Decelerations: None (Ekaterina Boyd RN) Pitocin (milliunit): Pitocin Increased to (milliunits) @ (Annotations: 6) (Ekaterina Boyd RN) Datetime: 01/24/2017 12:56 NBP Sys/[place]/Mean (mmHg): 110 (QS system process) : 57 (QS system process) : 76 (QS system process) Pulse: 80 (QS system process) LaborFlag: Antepartum (QS system process) Datetime: 01/24/2017 12:45 Monitor Mode: External; Palpation (Ekaterina Boyd RN) Frequency (min): 2-3.5 (Ekaterina Boyd RN) Quality: Mild/Moderate (Ekaterina Boyd RN) Duration (sec): 60-80 (Ekaterina Boyd RN) Duration Criteria: Less than Two 120 Second Contractions (Ekaterina Boyd RN) Pattern: Normal: <= 5 Contractions in 10 Minutes (Ekaterina Boyd RN) Resting Tone (Palpate): Relaxed (Ekaterina Boyd RN) Monitor Mode: External US (Ekaterina Boyd RN) FHR Baseline Rate : 130 (Ekaterina Boyd RN) FHR Baseline Changes: No Baseline Change (Ekaterina Boyd RN) Variability: Moderate 6-25 bpm (Ekaterina Boyd RN) Accelerations: 15X15 (Ekaterina Boyd RN) Decelerations: None (Ekaterina Boyd RN) Pitocin (milliunit): Pitocin Remains (milliunits) @ (Annotations: 4) (Ekaterina Boyd RN) Datetime: 01/24/2017 12:42 NBP Sys/[place]/Mean (mmHg): 110 (QS system process) : 60 (QS system process) : 76 (QS system process) Pulse: 76 (QS system process) LaborFlag: Antepartum (QS system process) Datetime: 01/24/2017 12:30 Monitor Mode: External; Palpation (Ekaterina Boyd RN) Frequency (min): 3 (Ekaterina Boyd RN) Quality: Mild/Moderate (Ekaterina Boyd RN) Duration (sec): 60-80 (Ekaterina Boyd RN) Duration Criteria: Less than Two 120 Second Contractions (Ekaterina Boyd RN) Pattern: Normal: <= 5 Contractions in 10 Minutes (Ekaterina Boyd RN) Resting Tone (Palpate): Relaxed (Ekaterina Boyd RN) Monitor Mode: External US (Ekaterina Boyd RN) FHR Baseline Rate : 130 (Ekaterina Boyd RN) FHR Baseline Changes: No Baseline Change (Ekaterina Boyd RN) Variability: Moderate 6-25 bpm (Ekaterina Boyd RN) Accelerations: 15X15 (Ekaterina Boyd RN) Decelerations: None (Ekaterina Oliver, RN) Pitocin (milliunit): Pitocin Remains (milliunits) @ (Annotations: 4) (Ekaterina Boyd, RN) Datetime: 01/24/2017 12:24 Patient Position/Activity: Left Tilt; Low Fowlers (Ekaterina Boyd, RN) Datetime: 01/24/2017 12:22 I/O Interventions: Up to BR (Ekaterina Boyd, RN) Datetime: 01/24/2017 12:15 Monitor Mode: External; Palpation (Ekaterina Boyd RN) Frequency (min): 1.5-3.5 (Ekaterina Boyd RN) Quality: Mild/Moderate (Ekaterina Boyd RN) Duration (sec): 60-120 (Ekaterina Boyd RN) Duration Criteria: Less than Two 120 Second Contractions (Ekaterina Boyd RN) Pattern: Normal: <= 5 Contractions in 10 Minutes (Ekaterina Boyd RN) Resting Tone (Palpate): Relaxed (Ekaterina Boyd RN) Monitor Mode: External US (Ekaterina Boyd RN) FHR Baseline Rate : 130 (Ekaterina Boyd RN) FHR Baseline Changes: No Baseline Change (Ekaterina Boyd RN) Variability: Moderate 6-25 bpm (Ekaterina Boyd RN) Accelerations: 15X15 (Ekaterina Boyd RN) Decelerations: None (Ekaterina Boyd RN) Pitocin (milliunit): Pitocin Increased to (milliunits) @ (Annotations: 4) (Ekaterina Boyd RN) Datetime: 01/24/2017 12:11 NBP Sys/Anupama/Mean (mmHg): 100 (QS system process) : 59 (QS system process) : 74 (QS system process) Pulse: 88 (QS system process) LaborFlag: Antepartum (QS system process) Datetime: 01/24/2017 12:00 Monitor Mode: External; Palpation (Ekaterina Boyd, RN) Frequency (min): 2-5 (Ekaterina Boyd, RN) Quality: Mild/Moderate (Ekaterina Oliver, RN) Duration (sec): 60-180 (Ekaterinakelvin Boyd, RN) Duration Criteria: Less than Two 120 Second Contractions (Ekaterina Boyd, RN) Pattern: Normal: <= 5 Contractions in 10 Minutes (Ekaterina Oliver, RN) Resting Tone (Palpate): Relaxed (Ekaterina Boyd, RN) Monitor Mode: External US (Ekaterina Boyd, RN) FHR Baseline Rate : 130 (Ekaterina Boyd, RN) FHR Baseline Changes: No Baseline Change (Ekaterina Boyd, RN) Variability: Moderate 6-25 bpm (Ekaterina Oliver, RN) Accelerations: 15X15 (Ekaterina Oliver, RN) Decelerations: None (Ekaterina Boyd, RN) Datetime: 01/24/2017 11:56 NBP Sys/Anupama/Mean (mmHg): 103 (QS system process) : 50 (QS system process) : 72 (QS system process) Pulse: 82 (QS system process) LaborFlag: Antepartum (QS system process) Datetime: 01/24/2017 11:45 Monitor Mode: External; Palpation (Ekaterina Boyd, ESTELA) Frequency (min): 3.5-5 (Ekaterina Boyd, RN) Quality: Mild/Moderate (Ekaterina Boyd, RN) Duration (sec): 90-120 (Ekaterina Boyd, RN) Duration Criteria: Less than Two 120 Second Contractions (Ekaterina Boyd, RN) Pattern: Normal: <= 5 Contractions in 10 Minutes (Ekaterina Boyd, RN) Resting Tone (Palpate): Relaxed (Ekaterina Boyd, RN) Monitor Mode: External US (Ekaterina Boyd, ESTELA) FHR Baseline Rate : 140 (Ekaterina Boyd, RN) FHR Baseline Changes: No Baseline Change (Ekaterina Boyd, RN) Variability: Moderate 6-25 bpm (Ekaterina Boyd, RN) Accelerations: 15X15 (Ekaterina Boyd, RN) Decelerations: None (Ekaterina Boyd, RN) Pitocin (milliunit): Pitocin Started (milliunits) @ 2 (Ekaterina Boyd, RN) Datetime: 01/24/2017 11:42 NBP Sys/Anupama/Mean (mmHg): 107 (QS system process) : 56 (QS system process) : 74 (QS system process) Pulse: 78 (QS system process) LaborFlag: Antepartum (QS system process) Datetime: 01/24/2017 11:40 Communication Comments: strip reviewed by Brenda Rhoades CNM. Order received to restart Pitocin at 2 millunits/min, increase by 2 milliunits/min every 30 minutes until a max of 20 milliunits/min or until adequate labor is reached (Ekaterina Boyd, RN) Datetime: 01/24/2017 11:39 Patient Position/Activity: Right Extreme; Low Fowlers (Ekaterina Oliver, RN) Datetime: 01/24/2017 11:36 I/O Interventions: Up to BR (Ekaterina Boyd, RN) Datetime: 01/24/2017 11:30 Monitor Mode: External; Palpation (Ekaterina Boyd, ESTELA) Frequency (min): 4-4.5 (Ekaterina Boyd, ESTELA) Quality: Mild/Moderate (Ekaterina Boyd, ESTELA) Duration (sec): 80-100 (Ekaterina Boyd, ESTELA) Duration Criteria: Less than Two 120 Second Contractions (Ekaterina Boyd, ESTELA) Pattern: Normal: <= 5 Contractions in 10 Minutes (Ekaterina Boyd, RN) Resting Tone (Palpate): Relaxed (Ekaterina Boyd, RN) Monitor Mode: External US (Ekaterina Boyd, ESTELA) FHR Baseline Rate : 130 (Ekaterina Boyd RN) FHR Baseline Changes: No Baseline Change (Ekaterina Boyd, RN) Variability: Moderate 6-25 bpm (Ekaterina Boyd, RN) Accelerations: 15X15 (Ekaterina Boyd, RN) Decelerations: None (Ekaterina Boyd, RN) Datetime: 01/24/2017 11:28 NBP Sys/Anupama/Mean (mmHg): 103 (QS system process) : 57 (QS system process) : 75 (QS system process) Pulse: 83 (QS system process) LaborFlag: Antepartum (QS system process) Datetime: 01/24/2017 11:17 Monitor Interventions for FHR: Ultrasound Adjusted (Ekaterina Boyd RN) Datetime: 01/24/2017 11:15 Monitor Mode: External; Palpation (Ekaterina Boyd RN) Frequency (min): 3-4 (Ekaterina Boyd, ESTELA) Quality: Mild/Moderate (Ekaterina Boyd, ESTELA) Duration (sec): 60-90 (Ekaterina Boyd RN) Duration Criteria: Less than Two 120 Second Contractions (Ekaterina Boyd, ESTELA) Pattern: Normal: <= 5 Contractions in 10 Minutes (Ekaterina Boyd, RN) Resting Tone (Palpate): Relaxed (Ekaterina Boyd, ESTELA) Monitor Mode: External US (Ekaterina Boyd, ESTELA) FHR Baseline Rate : 135 (Ekaterina Boyd RN) FHR Baseline Changes: No Baseline Change (Ekaterina Boyd RN) Variability: Moderate 6-25 bpm (Ekaterina Boyd, ESTELA) Accelerations: 10X10 (Ekaterina Boyd, ESTELA) Decelerations: None (Ekaterina Boyd RN) Datetime: 01/24/2017 11:11 NBP Sys/Anupama/Mean (mmHg): 118 (QS system process) : 61 (QS system process) : 84 (QS system process) Pulse: 77 (QS system process) LaborFlag: Antepartum (QS system process) Datetime: 01/24/2017 11:08 Patient Position/Activity: Right Extreme; Low Fowlers (Ekaterina Oliver, RN) Datetime: 01/24/2017 11:06 I/O Interventions: Up to BR (Ekaterina Oliver, RN) Datetime: 01/24/2017 11:00 Monitor Mode: External; Palpation (Ekaterina Boyd, RN) Frequency (min): 1.5-2.5 (Ekaterina Boyd, RN) Quality: Mild (Ekaterina Oliver, RN) Duration (sec): 80-100 (Ekaterina Oliver, RN) Duration Criteria: Less than Two 120 Second Contractions (Ekaterina Oliver, RN) Pattern: Normal: <= 5 Contractions in 10 Minutes (Ekaterina Oliver, RN) Resting Tone (Palpate): Relaxed (Ekaterinakelvin Boyd, RN) Monitor Mode: External US (Ekaterina Oliver, RN) FHR Baseline Rate : 140 (Ekaterina Oliver, RN) FHR Baseline Changes: No Baseline Change (Ekaterina Oliver, RN) Variability: Moderate 6-25 bpm (Ekaterina Olvier, RN) Accelerations: 15X15 (Ekaterina Oliver, RN) Decelerations: None (Ekaterina Oliver, RN) Datetime: 01/24/2017 10:52 IV/Blood Work: New IV Bag Hung (Ekaterina Boyd, RN) Datetime: 01/24/2017 10:48 Patient Care Comments: o2 applied at 10L (Ekaterina Boyd RN) Datetime: 01/24/2017 10:45 Monitor Mode: External; Palpation (Ekaterina Boyd RN) Frequency (min): 1.5-2 (Ekaterina Boyd RN) Quality: Mild (Ekaterina Boyd RN) Duration (sec): 60-70 (Ekaterina Boyd RN) Duration Criteria: Less than Two 120 Second Contractions (Ekaterina Boyd RN) Pattern: Normal: <= 5 Contractions in 10 Minutes (Ekaterina Boyd RN) Resting Tone (Palpate): Relaxed (Ekaterina oByd RN) Monitor Mode: External US (Ekaterina Boyd RN) FHR Baseline Rate : 140 (Ekaterina Boyd RN) FHR Baseline Changes: No Baseline Change (Ekaterina Boyd RN) Variability: Moderate 6-25 bpm (Ekaterina Boyd RN) Accelerations: None (Ekaterina Boyd RN) Decelerations: Late (Ekaterina Boyd RN) Communication Comments: Brenda Rhoades CNLaly notified of heart rate tracing, interventions, CNM to unit to view strip (Ekaterina Boyd RN) Datetime: 01/24/2017 10:43 Patient Position/Activity: Right Tilt (Ekaterina Boyd, RN) Datetime: 01/24/2017 10:42 Pitocin (milliunit): Pitocin Discontinued (Ekaterina Boyd, RN) IV/Blood Work: IV Bolus Started (Ekaterina Boyd, RN) Datetime: 01/24/2017 10:40 Patient Position/Activity: Left Tilt (Ekaterina Boyd, RN) Datetime: 01/24/2017 10:39 Monitor Interventions for UA: [place] Adjusted (Ekaterina Boyd, RN) Datetime: 01/24/2017 10:31 Monitor Interventions for UA: [place] Adjusted (Ekaterina Boyd, ESTELA) Monitor Interventions for FHR: Ultrasound Adjusted (Ekaterina Boyd RN) Patient Position/Activity: Left Tilt; Low Fowlers (Ekaterina Boyd, ESTELA) Datetime: 01/24/2017 10:30 Monitor Mode: External; Palpation (Ekaterina Boyd RN) Frequency (min): none (Ekaterina Boyd RN) Resting Tone (Palpate): Relaxed (Ekaterina Boyd RN) Monitor Mode: External US (Ekaterina Boyd RN) Comments: unable to determine due to patient position, RN at bedside adjusting monitor (Ekaterina Boyd RN) Pitocin (milliunit): Pitocin Remains (milliunits) @ (Annotations: 12) (Ekaterina Boyd, ESTELA) Datetime: 01/24/2017 10:23 Communication Comments: difficult to trace contractions, abdomen relaxed between contrations (Ekaterina Boyd, RN) Datetime: 01/24/2017 10:20 Monitor Interventions for UA: [place] Adjusted (Ekaterina Boyd, ESTELA) Monitor Interventions for FHR: Ultrasound Adjusted (Ekaterina Boyd, RN) Datetime: 01/24/2017 10:15 Monitor Mode: External; Palpation (Ekaterina Boyd, RN) Frequency (min): none (Ekaterina Oliver, RN) Resting Tone (Palpate): Relaxed (Ekaterina Oliver, RN) Monitor Mode: External US (Ekaterina Oliver, RN) FHR Baseline Rate : 130 (Ekaterina Oliver, RN) FHR Baseline Changes: No Baseline Change (Ekaterina Oliver, RN) Variability: Moderate 6-25 bpm (Ekaterina Oliver, RN) Accelerations: None (Ekaterina Oliver, RN) Decelerations: None (Ekaterina Oliver, RN) Pitocin (milliunit): Pitocin Remains (milliunits) @ (Annotations: 12) (Ekaterina Boyd, RN) Datetime: 01/24/2017 10:00 Monitor Mode: External; Palpation (Ekaterina Oliver, RN) Frequency (min): none (Ekaterina Oliver, RN) Resting Tone (Palpate): Relaxed (Ekaterina Oliver, RN) Monitor Mode: External US (Ekaterina Oliver, RN) FHR Baseline Rate : 140 (Ekaterina Oliver, RN) FHR Baseline Changes: No Baseline Change (Ekaterina Oliver, RN) Variability: Moderate 6-25 bpm (Ekaterina Oliver, RN) Accelerations: None (Ekaterina Oliver, RN) Decelerations: None (Ekaterina Oliver, RN) Pitocin (milliunit): Pitocin Increased to (milliunits) @ 12 (Ekaterinakelvin Boyd, RN) Datetime: 01/24/2017 09:45 Monitor Mode: External; Palpation (Ekaterina Oliver, RN) Frequency (min): irritability (Ekaterina Oliver, RN) Quality: Mild (Ekaterina Oliver, RN) Duration Criteria: Less than Two 120 Second Contractions (Ekaterina Oliver, RN) Pattern: Normal: <= 5 Contractions in 10 Minutes (Ekaterina Oliver, RN) Resting Tone (Palpate): Relaxed (Ekaterina Oliver, RN) Monitor Mode: External US (Ekaterina Oliver, RN) FHR Baseline Rate : 140 (Ekaterina Oliver, RN) FHR Baseline Changes: No Baseline Change (Ekaterina Oliver, RN) Variability: Moderate 6-25 bpm (Ekaterina Oliver, RN) Accelerations: None (Ekaterina Oliver, RN) Decelerations: None (Ekaterina Oliver, RN) Datetime: 01/24/2017 09:30 Monitor Mode: External; Palpation (Ekaterina Oliver, RN) Frequency (min): irritability (Ekaterina Oliver, RN) Quality: Mild (Ekaterina Oliver, RN) Duration Criteria: Less than Two 120 Second Contractions (Ekaterina Oliver, RN) Pattern: Normal: <= 5 Contractions in 10 Minutes (Ekaterina Oliver, RN) Resting Tone (Palpate): Relaxed (Ekaterina Oliver, RN) Monitor Mode: External US (Ekaterina Oliver, RN) FHR Baseline Rate : 130 (Ekaterina Boyd, RN) FHR Baseline Changes: No Baseline Change (Ekaterina Boyd, RN) Variability: Moderate 6-25 bpm (Ekaterina Boyd, RN) Accelerations: 15X15 (Ekaterina Boyd, RN) Decelerations: None (Ekaterina Boyd, RN) Pitocin (milliunit): Pitocin Increased to (milliunits) @ (Annotations: 10) (Ekaterina Boyd, RN) Datetime: 01/24/2017 09:26 Monitor Interventions for FHR: Ultrasound Adjusted (Ekaterina Boyd, RN) Communication: RN at Bedside (Ekaterina Boyd, RN) Datetime: 01/24/2017 09:25 Patient Position/Activity: Left Tilt (Ekaterina Boyd, RN) Datetime: 01/24/2017 09:21 I/O Interventions: Up to BR (Ekaterina Boyd, RN) Datetime: 01/24/2017 09:15 Monitor Mode: External; Palpation (Ekaterina Boyd, ESTELA) Frequency (min): 8.5 (Ekaterina Boyd, ESTELA) Quality: Mild (Ekaterina Boyd, ESTELA) Duration (sec): 120-180 (Ekaterina Boyd, ESTELA) Duration Criteria: Less than Two 120 Second Contractions (Ekaterina Boyd, ESTELA) Pattern: Normal: <= 5 Contractions in 10 Minutes (Ekaterina Boyd, RN) Resting Tone (Palpate): Relaxed (Ekaterina Boyd, RN) Monitor Mode: External US (Ekaterina Boyd, ESTELA) FHR Baseline Rate : 135 (Ekaterina Boyd, ESTELA) FHR Baseline Changes: No Baseline Change (Ekaterina Boyd, RN) Variability: Moderate 6-25 bpm (Ekaterina Boyd, RN) Accelerations: None (Ekaterina Boyd, RN) Decelerations: None (Ekaterina Boyd, RN) Pitocin (milliunit): Pitocin Increased to (milliunits) @ (Annotations: 8) (Ekaterina Boyd, RN) Datetime: 01/24/2017 09:00 Monitor Mode: External; Palpation (Ekaterina Boyd, RN) Frequency (min): none (Ekaterina Boyd, RN) Resting Tone (Palpate): Relaxed (Ekaterina Boyd, RN) Monitor Mode: External US (Ekaterina Boyd, RN) FHR Baseline Rate : 130 (Ekaterina Boyd, RN) FHR Baseline Changes: No Baseline Change (Ekaterina Boyd, RN) Variability: Moderate 6-25 bpm (Ekaterina Oliver, RN) Accelerations: 15X15 (Ekaterina Oliver, RN) Decelerations: None (Ekaterina Boyd, RN) Pitocin (milliunit): Pitocin Increased to (milliunits) @ (Annotations: 6) (Ekaterina Boyd, RN) Datetime: 01/24/2017 08:45 Monitor Mode: External; Palpation (Ekaterina Boyd, RN) Frequency (min): none (Ekaterina Boyd, RN) Resting Tone (Palpate): Relaxed (Ekaterina Boyd, RN) Monitor Mode: External US (Ekaterina Boyd, RN) FHR Baseline Rate : 140 (Ekaterina Boyd, RN) FHR Baseline Changes: No Baseline Change (Ekaterina Boyd, RN) Variability: Moderate 6-25 bpm (Ekaterina Oliver, RN) Accelerations: 15X15 (Ekaterina Oliver, RN) Decelerations: None (Ekaterina Boyd, RN) Pitocin (milliunit): Pitocin Remains (milliunits) @ 4 (Ekaterina Boyd, RN) Datetime: 01/24/2017 08:31 Patient Position/Activity: Left Tilt; Low Fowlers (Ekaterina Boyd, RN) Datetime: 01/24/2017 08:30 Monitor Mode: External; Palpation (Ekaterina Boyd, ESTELA) Frequency (min): none (Ekaterina Boyd, RN) Resting Tone (Palpate): Relaxed (Ekaterina Boyd, RN) Monitor Mode: External US (Ekaterina Boyd, RN) FHR Baseline Rate : 140 (Ekaterina Boyd, RN) FHR Baseline Changes: No Baseline Change (Ekaterina Boyd, RN) Variability: Moderate 6-25 bpm (Ekaterina Boyd, RN) Accelerations: None (Ekaterina Boyd, RN) Decelerations: None (Ekaterina Boyd, RN) Pitocin (milliunit): Pitocin Increased to (milliunits) @ 4 (Ekaterina Boyd, RN) Datetime: 01/24/2017 08:28 I/O Interventions: Up to BR (Ekaterina Boyd, RN) Datetime: 01/24/2017 08:15 Monitor Mode: External; Palpation (Ekaterina Boyd, RN) Frequency (min): none (Ekaterina Boyd, RN) Resting Tone (Palpate): Relaxed (Ekaterina Boyd, RN) Monitor Mode: External US (Ekaterina Boyd, RN) FHR Baseline Rate : 140 (Ekaterina Boyd, RN) FHR Baseline Changes: No Baseline Change (Ekaterina Boyd, RN) Accelerations: 10X10 (Ekaterina Boyd, RN) Decelerations: None (Ekaterina Boyd, RN) Pitocin (milliunit): Pitocin Remains (milliunits) @ 2 (Ekaterina Boyd, RN) Datetime: 01/24/2017 08:00 Monitor Mode: External; Palpation (Ekaterina Boyd, RN) Frequency (min): none (Ekaterina Boyd, RN) Resting Tone (Palpate): Relaxed (Ekaterina Boyd, RN) Monitor Mode: External US (Ekaterina Boyd, RN) FHR Baseline Rate : 140 (Ekaterina Boyd, RN) FHR Baseline Changes: No Baseline Change (Ekaterina Boyd, RN) Variability: Moderate 6-25 bpm (Ekaterina Boyd, RN) Accelerations: 15X15 (Ekaterina Boyd, RN) Decelerations: None (Ekaterina Boyd, RN) Pitocin (milliunit): Pitocin Started (milliunits) @ 2 (Ekaterina Boyd, RN) Datetime: 01/24/2017 07:56 Communication Comments: blood glucose 76 (Ekaterina Boyd, RN) Datetime: 01/24/2017 07:55 Bedside Blood Glucose: 78 (QS system process) LaborFlag: Antepartum (QS system process) Datetime: 01/24/2017 07:52 NBP Sys/Anupama/Mean (mmHg): 121 (QS system process) : 72 (QS system process) : 91 (QS system process) Pulse: 81 (QS system process) LaborFlag: Antepartum (QS system process) Datetime: 01/24/2017 07:30 Monitor Mode: External; Palpation (Ekaterina Boyd RN) Frequency (min): x1 (Ekaterina Boyd RN) Quality: Mild (Ekaterina Boyd RN) Duration (sec): 100 (Ekaterina Boyd RN) Duration Criteria: Less than Two 120 Second Contractions (Ekaterina Boyd RN) Pattern: Normal: <= 5 Contractions in 10 Minutes (Ekaterina Boyd RN) Resting Tone (Palpate): Relaxed (Ekaterina Boyd RN) Monitor Mode: External US (Ekaterina Boyd RN) FHR Baseline Rate : 140 (Ekaterina Boyd RN) FHR Baseline Changes: No Baseline Change (Ekaterina Boyd RN) Variability: Moderate 6-25 bpm (Ekaterina Boyd RN) Accelerations: 15X15 (Ekaterina Loiver, RN) Decelerations: None (Ekaterina Boyd, RN) Datetime: 01/24/2017 07:20 Level of Consciousness: Fully Conscious (Ekaterina Boyd, RN) DTR's/Clonus: DTRs 2+; No Clonus (Ekaterina Oliver, RN) Headache: Denies (Ekaterina Oliver, RN) Breath Sounds, Left: Clear and Equal (Ekaterina Oliver, RN) Breath Sounds, Right: Clear and Equal (Ekaterinakelvin Boyd, RN) Nausea/Vomiting: Denies (Ekaterina Oliver, RN) RUQ Epigastric Pain: Denies (Ekaterina Oliver, RN) Datetime: 01/24/2017 07:19 Communication Comments: report received from BWong Payne, RN (Ekaterina Oliver, RN) Datetime: 01/24/2017 07:13 Communication: RN at Bedside (Mary Grace Payne RN) Communication Comments: Report given to Laly Boyd. Care relinquished at this time. (Mary Grace Payne, ESTELA) Datetime: 01/24/2017 07:09 Procedures: Bedside Ultrasound Done (Mary Grace Payne RN) Patient Care Comments: Head down (Mary Grace Payne, ESTELA) Datetime: 01/24/2017 07:07 Dilatation (cm): 3.5 (Mary Grace Payne RN) Effacement (%): 50 (Mary Grace Payne RN) Station: -3 (Mary Grace Payne RN) Exam by: Dr Aguilar (Mary Grace Payne RN) Vaginal Bleeding: None (Mary Grace Payne RN) Cervix, Consistency: Moderate (Mary Grace Payne RN) Cervix, Position: Midposition (Mary Grace Payne RN) Datetime: 01/24/2017 07:00 Stage of : Antepartum (Mary Grace Payne RN) Frequency (min): none (Mary Grace Payne RN) Pattern: Normal: <= 5 Contractions in 10 Minutes (Mary Grace Payne RN) Monitor Mode: External US (Mary Grace Payne RN) FHR Baseline Rate : 145 (Mary Grace Payne RN) Variability: Moderate 6-25 bpm (Mary Grace Payne RN) Accelerations: 15X15 (Mary Grace Payne RN) Decelerations: None (Mary Grace Payne RN) Communication: RN at Bedside; RN Reviewed Strip (Mary Grace Payne RN)
[2017-01-24] MEDS: ACETAMINOPHEN WITH CODEINE #3 TABLET PO PRN (20:36)
[2017-01-24] MEDS: IBUPROFEN 800 MG TABLET PO SCH (22:29)
[2017-01-25] MEDS: IBUPROFEN 800 MG TABLET PO SCH ×3 (05:37→21:34)
--- NOTE | 2017-01-25 06:00 | L&D General Admission ---
General Admit Datetime Report Generated by CPN: 01/25/2017 06:00 INFORMATION Patient Age: 36 (01/09/2017 09:35:QS system process) EDC: 01/29/2017 00:00 (01/12/2017 09:40:HEBER Kothari) : 3 (01/12/2017 09:40:HEBER Kothari) Para: 1 (01/12/2017 09:40:HEBER Kothari) Term: 1 (01/12/2017 09:40:Caryl Nails RNC) : 0 (01/12/2017 09:40:Caryl Nails RNC) Spontaneous Abortions: 0 (01/12/2017 09:40:Caryl Nails RNCristine) Induced Abortions: 1 (01/12/2017 09:40:HEBER Kothari) Livin (01/12/2017 09:40:Caryl Nails RNCristine) Cesareans: 0 (01/12/2017 09:40:HEBER Kothari) VBACs: 0 (01/12/2017 09:40:HEBER Kothari) Ectopic: 0 (01/12/2017 09:40:Caryl Nails [facility]) Multiple Births: 0 (01/12/2017 09:40:Caryl Nails [facility]) Baby, Number in Womb: 1 (01/12/2017 09:40:Caryl Nails [facility]) CARE Primary Regional Medical Director: [facility] (01/12/2017 09:40:Caryl Nails [facility]) Month of 1st Visit: June (01/12/2017 09:40:Caryl Nails [facility]) Adequate Care: Yes (01/12/2017 09:40:Caryl Nails [facility]) Prepregnancy Weight (lb): 162 (01/12/2017 09:40:Caryl Nails [facility]) Prepregnancy Weight (kg): 73.6 (01/12/2017 09:40:QS system process) Height (in): 65 (01/12/2017 10:14:QS system process) ALLERGIES Medication Allergy: No (01/12/2017 09:40:Mary Grace Payne RN) Medication Allergies: No Known Allergies (01/24/2017) (01/24/2017 06:23:QS system process) Latex Allergy: No Latex Allergies (01/12/2017 09:40:Mary Grace Payne RN) Food Allergies: none (01/12/2017 09:40:Mary Grace Payne RN) Environmental Allergies: none (01/12/2017 09:40:Mary Grace Payne RN) COMMUNICATION Primary Language: Persian (01/12/2017 09:40:Caryl Nails, RN) Medical Tx Preferred Language: Persian (01/12/2017 09:40:Caryl Camp, RNC) Communication Barrier(s): None (01/12/2017 09:40:Caryl Nails RN) DEMOGRAPHICS Address: [address] [place] [id number] (01/09/2017 09:35:QS system process) Zipcode: [id number] (01/09/2017 09:35:QS system process) Home (01/09/2017 09:35:QS system process) Work (01/09/2017 09:35:QS system process) N: [phone] (01/09/2017 09:35:QS system process) Next of Kin Name: TRINO RITTER (01/09/2017 09:35:QS system process) Next of Kin (01/09/2017 09:35:QS system process) Next of Kin Relationship: MO (01/09/2017 09:35:QS system process) Date of : 1980 (01/09/2017 09:35:QS system process) Marital Status: (01/09/2017 09:35:QS system process) Sex: Female (01/09/2017 09:35:QS system process) Race: (01/09/2017 09:35:QS system process) Ethnicity: Non- or (01/09/2017 09:35:QS system process) Buddhist: Lutheran (01/09/2017 09:35:QS system process) FOB Involved: Yes (01/12/2017 09:40:Mary Grace Payne RN) Father of Baby Name: Rakesh (01/12/2017 09:40:Mary Grace Payne RN) DRUG AND ALCOHOL USE Alcohol: No (01/12/2017 09:40:Mary Grace Payne RN) Cigarettes: Former Smoker. [id number] (01/12/2017 09:40:Mary Grace Payne RN) Marijuana: No (01/12/2017 09:40:Mary Grace Payne RN) Cocaine: No (01/12/2017 09:40:Mary Grace Payne, RN) Other Illicit Drugs: No (01/12/2017 09:40:Mary Grace Payne, RN) VACCINE HISTORY Influenza Vaccine: Yes (01/12/2017 09:40:Caryl Camp, RNC) Influenza Date: 08-12-2016 (01/12/2017 09:40:Caryl Camp, RNC) Pneumococcal Vaccine: No (01/12/2017 09:40:Caryl Camp, RNC) Tetanus Vaccine: Yes (01/12/2017 09:40:Caryl Camp, RNC) Tetanus Date: 11-04-16 (01/12/2017 09:40:Caryl Camp, RNC) Tdap Vaccine: Yes (01/12/2017 09:40:Caryl Camp, RNC) Tdap Date: 11-04-16 (01/12/2017 09:40:Caryl Camp, RNC) Hepatitis B Vaccine: Uncertain (01/12/2017 09:40:Mary Grace Payne, RN) Director Talent Acquisition: [facility] (01/12/2017 09:40:Mary Grace Payne, RN) Feeding Preference: Breast (01/12/2017 09:40:Mary Grace Payne RN) Benefit of Breast Feed Discussed: Yes (01/12/2017 09:40:Mary Grace Payne RN) Circumcision: Yes (01/12/2017 09:40:Mary Grace Payne RN) Classes Attended: No (01/12/2017 09:40:Mary Grace Payne RN) Tubal Ligation: No (01/12/2017 09:40:Mary Grace Payne RN) Tubal Authorization Signed: N/A (01/12/2017 09:40:Mary Grace Payne RN) Consent: N/A (01/12/2017 09:40:Mary Grace aPyne RN) Consent Signed: N/A (01/12/2017 09:40:Mary Grace Payne RN) Pain Management Plans: Epidural (01/12/2017 09:40:Mary Grace Payne RN) Plans for Labor and Delivery: None (01/12/2017 09:40:Mary Grace Payne RN) Support Person: Rakesh (01/12/2017 09:40:Mary Grace Payne RN) Support Person Relationship: Other (01/12/2017 09:40:Mary Grace Payne RN) Other Relationship: /fob (01/12/2017 09:40:Mary Grace Payne RN) Cultural/Spritual Practice: No (01/12/2017 09:40:Mary Grace Payne RN) Spir/Cult Dietary Needs: No (01/12/2017 09:40:Mary Grace Payne RN) LIVING SITUATION/DISCHARGE PLAN Living Arrangements: House (01/12/2017 09:40:Mary Grace Payne RN) Adequate Access to:: Electric; Heat; Refrigeration; Plumbing/Running water; Phone; Transportation (01/12/2017 09:40:Mary Grace Payne RN) WIC Program: No (01/12/2017 09:40:Mary Grace Payne RN) Discharge Beam Dyer Operator Person: Rakesh or patients mother (01/12/2017 09:40:Mary Grace Payne RN) Person to Help after Discharge: Rakesh or patients mother (01/12/2017 09:40:Mary Grace Payne RN) Currently Using Commun Resources: Yes (01/12/2017 09:40:Mary Grace Payne RN) Outside Agency/Marketing Clerk: No (01/12/2017 09:40:Mary Grace Payne RN) Car Seat for Discharge: Yes (01/12/2017 09:40:Mary Grace Payne RN) Adoption Requested: No (01/12/2017 09:40:Mary Grace Payne RN) Pt Contact w/infant Post : N/A (01/12/2017 09:40:Mary Grace Payne RN) LABS Blood Type: O Positive (01/12/2017 09:40:HEBER Kothari) Antibody Screen: negative (01/12/2017 09:40:HEBER Kothari) Hemoglobin: 9.5 L (01/24/2017 06:41:QS system process) Hematocrit: 29.1 L (01/24/2017 06:41:QS system process) MCV: 80-97 fl (01/25/2017 06:00:QS system process) Group Beta Strep: negative (01/12/2017 09:40:[facility]) Gonorrhea: Negative (01/12/2017 09:40:[facility]) Chlamydia: Negative (01/12/2017 09:40:[facility]) RPR/VDRL: Nonreactive (01/12/2017 09:40:[facility]) HIV Results: negative (01/12/2017 09:40:[facility]) Hepatitis B: Negative (01/12/2017 09:40:[facility]) Rubella: Immune (01/12/2017 09:40:[facility]) OB/PREVIOUS HISTORY Previous Procedures: Ultrasound; [facility] Current Procedures: Ultrasound; NST (01/12/2017 09:40:Caryl [facility]) History of Previous : No (01/12/2017 09:40:Mary Grace Payne RN) History of Gestational Diabetes: Yes ([facility]/12/2017 09:40[facility] History of PIH: No (01/12/2017 09:40:Mary Grace Payne RN) History of Incompetent Cervix: No (01/12/2017 09:40:Mary Grace Payne RN) History of Placenta Previa/Abrup: No (01/12/2017 09:40:Mary Grace Payne RN) History of Macrosomia: No (01/12/2017 09:40:Mary Grace Payne RN) History of IUGR: No (01/12/2017 09:40:Mary Grace Payne RN) History of Hemorrhage: No (01/12/2017 09:40:Mary Grace Payne RN) History of Loss/Stillborn: No (01/12/2017 09:40:Mary Grace Payne RN) History of : No (01/12/2017 09:40:Mary Grace Payne RN) History of D (Rh) Sensitization: No (01/12/2017 09:40:Mary Grace Payne RN) History Recurrent Loss/Stillborn: No (01/12/2017 09:40:Mary Grace Payne RN) History Depression/PP Depression: No (01/12/2017 09:40:Mary Grace Payne RN) History of Uterine Anomaly/JESSICA: No (01/12/2017 09:40:Mary Grace Payne RN) History of Infertility: No (01/12/2017 09:40:Mary Grace Payne RN) History of ART Treatment: No (01/12/2017 09:40:Mary Grace Payne RN) History of JESSICA: No (01/12/2017 09:40:Mary Grace Payne RN) Comments Obstetrical History: G-1 EAB 11 week G-2 40 weeks no complications G-3 GDM, AMA on Glyburide (01/12/2017 09:40:HEBER Kothari) MEDICAL HISTORY Med Hx Diabetes: Yes (01/12/2017 09:40:Mary Grace Payne RN) Diabetes Type: Gestational Diabetes (01/12/2017 09:40:Mary Grace Payne RN) Med Hx Hypertension: No (01/12/2017 09:40:Mary Grace Payne RN) Med Hx Heart Disease: No (01/12/2017 09:40:Mary Grace Payne RN) Med Hx Autoimmune Disorder: No (01/12/2017 09:40:Mary Grace Payne RN) Med Hx Kidney Disease/UTI: No (01/12/2017 09:40:Mary Grace Payne RN) Med Hx Neurologic/Epilepsy: No (01/12/2017 09:40:Mary Grace Payne RN) Med Hx Psychiatric Disorders: No (01/12/2017 09:40:Mary Grace Payne RN) Med Hx Hepatitis/Liver Disease: No (01/12/2017 09:40:Mary Grace Payne RN) Med Hx Varicosities/Phlebitis: No (01/12/2017 09:40:Mary Grace Payne RN) Med Hx Thyroid Dysfunction: No (01/12/2017 09:40:Mary Grace Payne RN) Med Hx Trauma/Violence: No (01/12/2017 09:40:Mary Grace Payne RN) Med Hx Blood Transfusion: No (01/12/2017 09:40:Mary Grace Payne RN) Med Hx Pulmonary (Asthma,TB): No (01/12/2017 09:40:Mary Grace Payne RN) Med Hx Breast: No (01/12/2017 09:40:Mary Grace Payne RN) Med Hx CREW TEAM MEMBER Surgery: No (01/12/2017 09:40:Mary Grace Payne RN) Med Hx Hospitalization/Surgery: Yes (01/12/2017 09:40:Mary Grace Payne RN) Med Hx Anesthetic Complications: No (01/12/2017 09:40:Mary Grace Payne RN) Med Hx Abnormal Pap Smear: No (01/12/2017 09:40:Mary Grace Payne RN) Other Medical Diseases: No (01/12/2017 09:40:Mary Grace Payne RN) Med Hx Significant Family Hx: No (01/12/2017 09:40:Mary Grace Payne RN) Details of Med/Surg Hx: childbirth (01/12/2017 09:40:Mary Grace Payne RN) INFECTIOUS HISTORY Inf Hx Gonorrhea: No (01/12/2017 09:40:Mary Grace Payne RN) Inf Hx Chlamydia: No (01/12/2017 09:40:Mary Grace Payne RN) Inf Hx Syphilis: No (01/12/2017 09:40:Mary Grace Payne RN) Inf Hx HIV/AIDS: No (01/12/2017 09:40:Mary Grace Payne RN) Inf Hx Human Papilloma Virus: No (01/12/2017 09:40:Mary Grace Payne RN) Inf Hx Pt/Partner Genital Herpes: No (01/12/2017 09:40:Mary Grace Payne RN) Inf Hx Tuberculosis/Exposure: No (01/12/2017 09:40:Mary Grace Payne RN) Inf Hx Hepatitis B,C: No (01/12/2017 09:40:Mary Grace Payne RN) Inf Hx Rash or Viral Illness: No (01/12/2017 09:40:Mary Grace Payne RN) GENETIC HISTORY Gen Hx Age >=35 at MAC[place]: No (01/12/2017 09:40:Mary Grace Payne RN) Gen Hx Thalassemia: No (01/12/2017 09:40:Mary Grace Payne RN) Gen Hx Congenital Heart Defect: No (01/12/2017 09:40:Mary Grace Payne RN) Gen Hx Neural Tube Defect: No (01/12/2017 09:40:Mary Grace Payne RN) Gen Hx Down's Syndrome: No (01/12/2017 09:40:Mary Grace Payne RN) Gen Hx Rigo-Sachs: No (01/12/2017 09:40:Mary Grace Payne RN) Gen Hx Ramiro: No (01/12/2017 09:40:Mary Grace Payne RN) Gen Hx Familial Dysautonomia: No (01/12/2017 09:40:Mary Grace Payne RN) Gen Hx Sickle Cell Disease/Trait: No (01/12/2017 09:40:Mary Grace Payne RN) Gen Hx Hemophilia/Blood Disorder: No (01/12/2017 09:40:Mary Grace Payne RN) Gen Hx Muscular Dystrophy: No (01/12/2017 09:40:Mary Grace Payne RN) Gen Hx Cystic Fibrosis: No (01/12/2017 09:40:Mary Grace Payne RN) Gen Hx Huntingtons Chorea: No (01/12/2017 09:40:Mary Grace Payne RN) Gen Hx Mental Retardation/Autism: No (01/12/2017 09:40:Mary Grace Payne RN) Gen Hx Tested for Fragile X: No (01/12/2017 09:40:Mary Grace Payne RN) Gen Hx Other Inher/Chromosomal: No (01/12/2017 09:40:Mary Grace Payne RN) Gen Hx Maternal Metabolic DO: No (01/12/2017 09:40:Mary Grace Payne RN) Gen Hx Pt Father or FOB Defect: No (01/12/2017 09:40:Mary Grace Payne RN) Gen Hx Other Genetic History: No (01/12/2017 09:40:Mary Grace Payne RN) Gen Hx Drugs/Meds since LMP: Yes (01/12/2017 09:40:Mary Grace Payne RN) Gen Hx Medications: PNV, tylenol, nexium, benadryl (01/12/2017 09:40:Mary Grace Payne RN)
--- NOTE | 2017-01-25 06:00 | L&D Current Admission ---
Current Admit Datetime Report Generated by CPN: 01/25/2017 06:00 ADMISSION INFORMATION Current Admit Date/Time: 01/24/2017 06:21 (01/24/2017 06:34:Mary Grace Payne RN) Reason for Admission: Induction of Labor (01/24/2017 06:34:Mary Grace Payne RN) Chief Complaint: Scheduled Induction of Labor (01/24/2017 06:34:Mary Grace Payne RN) Medications During : Oral Antihyperglycemics; Vitamin; Acetaminophen (Tylenol) (01/24/2017 06:34:Mary Grace Payne RN) Meds During -Oth: nexium (01/24/2017 06:34:Mary Grace Payne RN) EGA per Dates: 39.2 (01/24/2017 06:34:QS system process) Method of Arrival: Ambulatory (01/24/2017 06:34:Mary Grace Payne RN) Admitted From: Home (01/24/2017 06:34:Mary Grace Payne RN) Reason for Induction: Maternal Diabetes (01/24/2017 06:34:Mary Grace Payne RN) Reason for Induction- Other: GDM (01/24/2017 06:34:Mary Grace Payne RN) Records Available: Yes (01/24/2017 06:34:Mary Grace Payne RN) General Admission Information: Reviewed (01/24/2017 06:34:Mary Grace Payne RN) BELONGINGS/ADVANCED DIRECTIVES Comments Regarding Disposition: see belongings consent form (01/24/2017 06:34:Mary Grace Payne RN) Advance Direct for Healthcare: No, and Wants No Information (01/24/2017 06:34:Mary Grace Payne RN) Durable Power of Hspt Tutor: No (01/24/2017 06:34:Mary Grace Payne RN) Living Will: No (01/24/2017 06:34:Mary Grace Payne RN) Organ Donor: Yes (01/24/2017 06:34:Mary Grace Payne RN) Pt Rights Information Given: Yes (01/24/2017 06:34:Mary Grace Payne RN) Pt Understands Pt Rights: Yes (01/24/2017 06:34:Mary Grace Payne RN) LEARNING ASSESSMENT Knowledge Level: Understands L_D Process; Understands Care Activities; Understands Diagnosis (01/24/2017 06:34:Mary Grace Payne RN) Barriers to Learning: None (01/24/2017 06:34:Mary Grace Payne RN) Learning Readiness: Motivated (01/24/2017 06:34:Mary Grace Payne RN) Learns Best By: 1 to 1 Instruction; Reading; Videos; Demonstration (01/24/2017 06:34:Mary Grace Payne RN) Learning Needs: Labor and Delivery Process; Pain Management; Symptoms to Report; Treatment Plan; Medication; Diagnosis; Nutrition; Equipment; Infant Care; Community Resources (01/24/2017 06:34:Mary Grace Payne RN) DOMESTIC VIOLANCE SCREENING Dom Viol Threatened/Hurt: No (01/24/2017 06:34:Mary Grace Payne RN) Hx of Abuse/Neglect past 2yrs: No (01/24/2017 06:34:Mary Grace Payne RN) Feel Unsafe Going Home: No (01/24/2017 06:34:Mary Grace Payne RN) Addt'l Observ Indicating Abuse: No (01/24/2017 06:34:Mary Grace Payne RN) Reason Unable to Complete Screen: N/A, Screen Completed (01/24/2017 06:34:Mary Grace Payne RN) Considered Personal Harm/Suicide: No (01/24/2017 06:34:Mary Grace Payne RN) NUTRITIONAL/FUNCTIONAL SCREENING Problem with Appetite >5 Days: No (01/24/2017 06:34:Mary Grace Payne RN) Chew/Swallow Difficulties: No (01/24/2017 06:34:Mary Grace Payne RN) Inappropriate Wt Gain/Loss: No (01/24/2017 06:34:Mary Grace Payne RN) Presence Skin Breakdown/Ulcer: No (01/24/2017 06:34:Mary Grace Payne RN) Special Diet: No (01/24/2017 06:34:Mary Grace Payne RN) Pt Requests Customer Accounts Advisor Visit: No (01/24/2017 06:34:Mary Grace Payne RN) Hx of Any of the Following?: N/A (01/24/2017 06:34:Mary Grace Payne RN) New Diagnosis of: Gest Diabetes (01/24/2017 06:34:Mary Grace Payne RN) Requires Assist w/Ambulation: No (01/24/2017 06:34:Mary Grace Payne RN) Uses Assist Device to Ambulate: No (01/24/2017 06:34:Mary Grace Payne RN) Pt Requires Help w/ADL's: No (01/24/2017 06:34:Mary Grace Payne RN)
--- NOTE | 2017-01-25 06:15 | L&D Care Plan ---
LD CARE PLANS Datetime Report Generated by CPN: 01/25/2017 06:15 Datetime: 01/24/2017 06:29 Pain State: Risk For (Sia Gonzalez RN) Related To: Labor and Delivery Process; Treatment and Procedures; Post (Sia Gonzalez RN) Goal(s): Patients Pain will be Assessed and Managed; Patient will Verbalize Adequate Relief of Pain or the Ability to [place] with Current Pain (Sia Gonzalez RN) Interventions: Assess Pain Severity on Scale of 0 (None) to 5 (Severe); Assess Type, Location and Intensity of Pain Each Time Client Reports Discomfort and Notify Provider if Unusal Pain Develops; Encourage Proper Breathing and Relaxation Techniques; Offer Alternatives Such as Repositioning, Calm Environment, Massages, Diversional Activities, Ice Pack, Splinting, and Ambulation; Administer Analgesics as Ordered; Assist with Epidural Placement as Appropriate; Evaluate Therapeutic Effectiveness of Medication and Treatments (Sia Gonzalez RN) Outcome: Patient will Report Absence or Relief of Pain Consistent with Established Pain Goal (Sia Gonzalez RN) Status: Ongoing (Sia Gonzalez RN) Outcome: Patient will have a Decrease in Signs and Symptoms of Discomfort (Sia Gonzalez RN) Status: Ongoing (Sia Gonzalez RN) Outcome: Pain will be Controlled During Procedures (Sia Gonzalez RN) Status: Ongoing (Sia Gonzalez RN) Anxiety State: Risk For (Sia Gonzalez RN) Related To: Labor and Delivery Process; Perceived or Actual Threat to ; Fear of Unknown; Situational Crisis; Medical Interventions; Significant Life Event (Sia Gonzalez RN) Goal(s): Patient will have Decreased Anxiety and be able to Function at Acceptable Levels (Sia Gonzalez RN) Interventions: Assess Verbal and Nonverbal Behavioral Indicators of Anxiety; Assist Patient to Identify and Verbalize Symptoms of Anxiety; Identify and Demonstrate Techniques to Control Anxiety; Assist Patient with Coping Mechanisms to Manage Anxiety; Provide Theraputic Touch for the Patient; Explain to Patient, Using a Calm Reassuring Approach and Nonmedical Terms, All Activities, Procedures, and Concerns; Instruct Patient and Family about Post Discharge Care, Limitations, Symptoms to Report and Resources Available (Sia Gonzalez RN) Outcome: Patient will Identify, Verbalize and Demonstrate Techniques to Control Anxiety (Sia Gonzalez RN) Status: Ongoing (Sia Gonzalez RN) Outcome: Patient's Posture, Facial Expressions, Gestures and Activity Level will Reflect Decreased Anxiety (Sia Gonzalez RN) Status: Ongoing (Sia Gonzalez RN) Outcome: Patient will Verbalize a Sense of Control and/or Acceptance of the Situation (Sia Gonzalez RN) Status: Ongoing (Sia Gonzalez RN) Outcome: Patient will Identify and Utilize Support Person (Sia Gonzalez RN) Status: Ongoing (Sia Gonzalez RN) Knowledge Deficit State: Risk For (Sia Gonzalez RN) Related To: Labor and Delivery Process; Surgical Procedures; Impending Alterations in Family Dynamics; Feeding and Care; Community Resources and Available Support Mechanisms (Sia Gonzalez RN) Goal(s): Patient will Accurately Verbalize Understanding of Plan of Care and Treatment; Patient and Family will Accurately Verbalize Understanding of the Disease Process (Sia Gonzalez RN) Interventions: Assess Motivation and Willingness of Patient/Family to Learn; Assess Preferred Learning Mode: One to One Instruction, Reading, Videos, Group Discussion or Demonstration; Assess Barriers to Learning: Pain, Emotional State, Language Barrier, Cognitive Impairment, Visual or Hearing Deficits; Assess Patient and Family Knowledge of Disease Process, Medications and Treatment; Discuss Therapy and/or Treatment Options, Describe Rationale Behind Management, Therapy and Treatment Recommendations; Instruct Patient and Family on Signs and Symptoms to Report; Provide Patient and Family with Support Group Information and Resources; Give Clear and Thorough Explanations and Demonstrations (Sia Gonzalez RN) Outcome: Patient and Family will Verbalize Understanding of Condition, Treatment and Signs and Symptoms to Report (Sia Gonzalez RN) Status: Ongoing (Sia Gonzalez RN) Outcome: Patient will Identify Perceived Learning Needs and Express Motivation to Learn (Sia Gonzalez RN) Status: Ongoing (Sia Gonzalez RN) Outcome: Patient will Verbalize Understanding of Desired Content, and/or Performs Desired Skill Prior to Discharge (Sia Gonzalez RN) Status: Ongoing (Sia Gonzalez RN) Infection State: Risk For (Sia Gonzalez RN) Related To: Invasive Procedures (Sia Gonzalez RN) Goal(s): The Patient will be Free of Infection, Vital Signs Stable and Lab Work within Normal Parameters (Sia Gonzalez RN) Interventions: Instruct and Reinforce Proper Handwashing, Hygiene, and Care Techniques to Patient and Family; Monitor Vital Signs; Monitor Patient for the Following Signs of Infection: Fever, Abdominal Tenderness, Unusual Discharge; Monitor Aminiotic Fluid, Urine and Lochia for Color and Odor; Observe Wounds, Incisions and Invasive Line Sites for Redness, Drainage and Edema; Assess IV Sites per Hospital Policy; Monitor Lab and Test Results and Notify Provider of Abnormal Findings; Assess Nutritional Status and Promote Good Nutrition (Sia Gonzalez RN) Outcome: Patient will Remain Free of Infection (Sia Gonzalez RN) Status: Ongoing (Sia Gonzalez RN) Outcome: Infection will be Recognized Early to Allow for Prompt Treatment (Sia Gonzalez RN) Status: Ongoing (Sia Gonzalez RN) Outcome: Patient will have Vital Signs Within Expected Range (Sia Gonzalez RN) Status: Ongoing (Sia Gonzalez RN) Datetime: 01/24/2017 06:28 Pain State: Risk For (Sia Gonzalez RN) Related To: Labor and Delivery Process; Treatment and Procedures; Post (Sia Gonzalez RN) Goal(s): Patients Pain will be Assessed and Managed; Patient will Verbalize Adequate Relief of Pain or the Ability to [place] with Current Pain (Sia Gonzalez RN) Interventions: Assess Pain Severity on Scale of 0 (None) to 5 (Severe); Assess Type, Location and Intensity of Pain Each Time Client Reports Discomfort and Notify Provider if Unusal Pain Develops; Encourage Proper Breathing and Relaxation Techniques; Offer Alternatives Such as Repositioning, Calm Environment, Massages, Diversional Activities, Ice Pack, Splinting, and Ambulation; Administer Analgesics as Ordered; Assist with Epidural Placement as Appropriate; Evaluate Therapeutic Effectiveness of Medication and Treatments (Sia Gonzalez RN) Outcome: Patient will Report Absence or Relief of Pain Consistent with Established Pain Goal (Sia Gonzalez RN) Status: Ongoing (Sia Gonzalez RN) Outcome: Patient will have a Decrease in Signs and Symptoms of Discomfort (Sia Gonzalez RN) Status: Ongoing (Sia Gonzalez RN) Outcome: Pain will be Controlled During Procedures (Sia Gonzalez RN) Status: Ongoing (Sia Gonzalez RN) Anxiety State: Risk For (Sia Gonzalez RN) Related To: Labor and Delivery Process; Perceived or Actual Threat to ; Fear of Unknown; Situational Crisis; Medical Interventions; Significant Life Event (Sia Gonzalez RN) Goal(s): Patient will have Decreased Anxiety and be able to Function at Acceptable Levels (Sia Gonzalez RN) Interventions: Assess Verbal and Nonverbal Behavioral Indicators of Anxiety; Assist Patient to Identify and Verbalize Symptoms of Anxiety; Identify and Demonstrate Techniques to Control Anxiety; Assist Patient with Coping Mechanisms to Manage Anxiety; Provide Theraputic Touch for the Patient; Explain to Patient, Using a Calm Reassuring Approach and Nonmedical Terms, All Activities, Procedures, and Concerns; Instruct Patient and Family about Post Discharge Care, Limitations, Symptoms to Report and Resources Available (Sia Gonzalez RN) Outcome: Patient will Identify, Verbalize and Demonstrate Techniques to Control Anxiety (Sia Gonzalez RN) Status: Ongoing (Sia Gonzalez RN) Outcome: Patient's Posture, Facial Expressions, Gestures and Activity Level will Reflect Decreased Anxiety (Sia Gonzalez RN) Status: Ongoing (Sia Gonazlez RN) Outcome: Patient will Verbalize a Sense of Control and/or Acceptance of the Situation (Sia Gonzalez RN) Status: Ongoing (Sia Gonzalez RN) Outcome: Patient will Identify and Utilize Support Person (Sia Gonzalez RN) Status: Ongoing (Sia Gonzalez RN) Knowledge Deficit State: Risk For (Sia Gonzalez RN) Related To: Labor and Delivery Process; Surgical Procedures; Impending Alterations in Family Dynamics; Feeding and Infant Care; Community Resources and Available Support Mechanisms (Sia Gonzalez RN) Goal(s): Patient will Accurately Verbalize Understanding of Plan of Care and Treatment; Patient and Family will Accurately Verbalize Understanding of the Disease Process (Sia Gonzalez RN) Interventions: Assess Motivation and Willingness of Patient/Family to Learn; Assess Preferred Learning Mode: One to One Instruction, Reading, Videos, Group Discussion or Demonstration; Assess Barriers to Learning: Pain, Emotional State, Language Barrier, Cognitive Impairment, Visual or Hearing Deficits; Assess Patient and Family Knowledge of Disease Process, Medications and Treatment; Discuss Therapy and/or Treatment Options, Describe Rationale Behind Management, Therapy and Treatment Recommendations; Instruct Patient and Family on Signs and Symptoms to Report; Provide Patient and Family with Support Group Information and Resources; Give Clear and Thorough Explanations and Demonstrations (Sia Gonzalez RN) Outcome: Patient and Family will Verbalize Understanding of Condition, Treatment and Signs and Symptoms to Report (Sia Gonzalez RN) Status: Ongoing (Sia Gonzalez RN) Outcome: Patient will Identify Perceived Learning Needs and Express Motivation to Learn (Sia Gonzalez RN) Status: Ongoing (Sia Gonzalez RN) Outcome: Patient will Verbalize Understanding of Desired Content, and/or Performs Desired Skill Prior to Discharge (Sia Gonzalez RN) Status: Ongoing (Sia Gonzalez RN)
[2017-01-25 08:02] LABS: HEMATOCRIT 26.9 % (36.0-47.0); HEMOGLOBIN 8.7 g/dL (12.0-15.5); HGB HCT DIFFERENCE -0.8; MEAN CORPUSCULAR HEMOGLOBIN 27.5 pg (27.0-33.4); MEAN CORPUSCULAR HGB CONC 32.3 g/dL (32.0-36.0); MEAN CORPUSCULAR VOLUME 85 fl (80-97); RED BLOOD COUNT 3.17 10^6/uL (3.72-5.28); RED CELL DISTRIBUTION WIDTH 15.7 % (11.5-14.0)
[2017-01-25] MEDS: SENNOSIDES/DOCUSATE 8.6-50 MG 1 EACH TABLET PO SCH (09:28)
[2017-01-25] MEDS: DOCUSATE SODIUM 100 MG CAPSULE PO SCH ×2 (09:28→17:29)
[2017-01-25] MEDS: PRENATAL VITAMIN W-O CA NO5/FE FUMARATE/FA CAPSULE PO SCH (09:29)
[2017-01-25] MEDS: FERROUS SULFATE 325 MG TABLET PO SCH ×2 (09:29→17:29)
--- NOTE | 2017-01-25 10:08 | PDOC PROGRESS REPORT ---
Subjective-OB Subjective: Post Delivery Day: 36 year old. Denies any needs at this time. Pt doing well, no concerns. Reports light bleeding, regular diet and voiding well. Physical Exam (OB) Vital Signs: Temp Pulse Resp BP Pulse Ox 98.3 F 79 18 113/73 98 01/25/17 08:00 01/25/17 08:00 01/25/17 08:00 01/25/17 08:00 01/25/17 08:00 Intake & Output 01/24/17 01/25/17 01/26/17 06:59 06:59 06:59 Intake Total 650 Balance 650 Weight 104.05 kg - Lochia Lochia Amount: Scant < 10 ml Lochia Color: Rubra/Red - Abdomen Description: Soft, Round Hernia Present: No Fundal Description: Firm, Midline Fundal Height: u/u - u/2 Objective-Diagnostic Laboratory: 01/25/17 07:43 01/25/17 07:43 WBC 14.0 H RBC 3.17 L Hgb 8.7 L Hct 26.9 L MCV 85 MCH 27.5 MCHC 32.3 RDW 15.7 H Plt Count 268 Assessment and Plan(PN) - Assessment and Plan (1) (spontaneous vaginal delivery) Is this a current diagnosis for this admission?: Yes - Time Spent with Patient Time with patient: Less than 15 minutes Medications reviewed and adjusted accordingly: Yes - Disposition Anticipated Discharge: Home Within: within 24 hours
[2017-01-25] MEDS: ACETAMINOPHEN WITH CODEINE #3 TABLET PO PRN (20:48)
[2017-01-26] MEDS: IBUPROFEN 800 MG TABLET PO SCH ×2 (05:51→13:49)
[2017-01-26 08:47] VITALS: BP 122/75
[2017-01-26] MEDS: PRENATAL VITAMIN W-O CA NO5/FE FUMARATE/FA CAPSULE PO SCH (09:16)
[2017-01-26] MEDS: FERROUS SULFATE 325 MG TABLET PO SCH ×2 (09:16→17:28)
[2017-01-26] MEDS: SENNOSIDES/DOCUSATE 8.6-50 MG 1 EACH TABLET PO SCH (09:17)
[2017-01-26] MEDS: DOCUSATE SODIUM 100 MG CAPSULE PO SCH ×2 (09:17→17:28)
[2017-01-26] MEDS ORDERED: GLYCERIN/WITCH HAZEL LEAF 1 EACH MED..PAD TP PRN (12:59)
--- NOTE | 2017-01-26 14:02 | PDOC DISCHARGE SUMMARY ---
Final Diagnosis Discharge Date: 01/26/17 - Final Diagnosis (1) Anemia Is this a current diagnosis for this admission?: Yes (2) (spontaneous vaginal delivery) Is this a current diagnosis for this admission?: Yes Discharge Data - Discharge Medication Home Medications: Pnv No.122/Iron/Folic Acid [ Multi Tablet] 1 tab PO DAILY 01/12/17 Docusate Sodium [Colace 100 mg Capsule] 100 mg PO BID #60 capsule 01/26/17 Ferrous Sulfate [Feosol 325 mg Tablet] 325 mg PO BID #60 tablet 01/26/17 Ibuprofen [Motrin 800 mg Tablet] 800 mg PO Q8HP PRN #90 tablet 01/26/17 Reason(s) for Admission: Induction of Labor Procedures: NST, Ultrasound Intrapartum Procedure(s): Spontaneous Vaginal Delivery Complication(s): Laceration-Vaginal Laceration-Degree: 1st - Diagnosis Test Laboratory: Temp Pulse Resp BP Pulse Ox 98.3 F 78 16 122/75 98 01/26/17 08:05 01/26/17 08:05 01/26/17 08:05 01/26/17 08:05 01/26/17 08:05 01/24/17 01/24/17 01/25/17 06:22 06:41 07:43 RBC 3.44 L 3.17 L Hgb 9.5 L 8.7 L Hct 29.1 L 26.9 L Urine Opiates Screen NEGATIVE - Discharge information/Instructions Discharge Activity: Activity As Tolerated, Balance Activity w/Rest, No Lifting Over 10 Pounds, Pelvic Rest, Slowly Increase Activity, No tub bath Discharge Diet: Regular Disposition: HOME, SELF-CARE Follow up with: [facility] in: 4, Weeks
== END 2017-01-26 19:20 | disposition home or self-care (01) | DRG 775 ==
LOC: LR 06:13 → 2N 18:03
PROVIDERS: ADMIT Student in an Organized Health Care Education/Training Program; ATTEND Student in an Organized Health Care Education/Training Program
PROC: 10E0XZZ Delivery of Products of Conception, External Approach (ICD-10-PCS; principal; 2017-01-24)
PROC: 0HQ9XZZ Repair Perineum Skin, External Approach (ICD-10-PCS; 2017-01-24)
PROC: 3E0P7GC Introduction of Other Therapeutic Substance into Female Reproductive, Via Natural or Artificial Opening (ICD-10-PCS; 2017-01-24)
PROC: 10907ZC Drainage of Amniotic Fluid, Therapeutic from Products of Conception, Via Natural or Artificial Opening (ICD-10-PCS; 2017-01-24)
PROC: 4A1HXCZ Monitoring of Products of Conception, Cardiac Rate, External Approach (ICD-10-PCS; 2017-01-24)
DX: O24.429 Gestational diabetes mellitus in childbirth, unspecified control (principal); O99.02 Anemia complicating childbirth; D64.9 Anemia, unspecified; O70.0 First degree perineal laceration during delivery; O76 Abnormality in fetal heart rate and rhythm complicating labor and delivery; O36.8930 Maternal care for other specified fetal problems, third trimester, not applicable or unspecified; Z87.891 Personal history of nicotine dependence; Z3A.39 39 weeks gestation of pregnancy; Z37.0 Single live birth
CPT/HCPCS: 36415; 80307; 81005; 82962; 85025; 85027; 86592; 86850; 86900; 86901; 94760; J2590; J3490